=== PATIENT | male | born 1950 | race Caucasian/White ===

== ENCOUNTER 2018-06-19 13:55 | Inpatient (IN) | payer MEDICARE, OTHER ==
[2018-06-19] VITALS (13 sets, daily range): BP systolic 141–199; BP diastolic 61–85
[~2018-06-19] VITALS: Ht 190.5 cm; Wt 80.5 kg
--- NOTE | 2018-06-19 14:11 | PHYS DOC ---
Adult General Chief Complaint Chief Complaint: ABDOMINAL PAIN HPI HPI 67-year-old male presenting the emergency department today with abdominal pain started about 30 minutes ago. He has a history of an aortic surgery years ago and a history of a hernia in the past. He denies any vomiting fevers or chills. It was a sudden pain that was nonradiating intermittent and without alleviating factors. The pain is severe. Medical history: Hypertension and COPD Surgical history as above Social history: Smokes, drinks occasionally, denies IV drug use Review of systems is negative for chest pain shortness of breath headache fevers chills neck pain. He denies hematuria or hematochezia or melena. All other review of systems is negative. ED course: 67-year-old male presenting with severe abdominal pain. He was found to have a closed loop obstruction with possible pneumatosis. Patient is given IV fluids and pain medications on arrival. CT angiogram performed along with blood work. Blood work shows leukocytosis. Lactic acid within normal limits. Creatinine within normal limits. I had Dr. Rivera our general surgeon paged as soon as the radiologist discussed the findings with me at 3:[address] Rivera called back at approximately 410. He will take the patient to the operating room. Patient was given IV fluids here in the emergency room. He is nothing by mouth at this time. I initiated IV antibiotics broad-spectrum. Dr. Rivera evaluated the patient and the patient is going to go to the operating room at this time. I have obtained a bed for the patient through Dr. Dallas who accepts the patient for admission. Basic bridge orders placed. Current Medications Current Medications Current Medications Medications (Trade) Dose Ordered Sig/Vidhya Start Time Stop Time Status Last Admin Dose Admin Hydromorphone HCl (Dilaudid) 0.5 mg PRN Q1HR PRN 06/19/18 14:15 06/19/18 16:42 DC 06/19/18 16:42 0.5 MG Iohexol (Omnipaque 350 Mg/ml) 90 ml 1X ONCE 06/19/18 15:00 06/19/18 15:01 DC 06/19/18 14:51 90 ML Ondansetron HCl (Zofran) 4 mg 1X ONCE 06/19/18 14:15 06/19/18 14:33 DC 06/19/18 15:55 4 MG Sodium Chloride 1,000 ml @ 1,000 mls/hr Q1H 06/19/18 14:13 06/19/18 15:12 DC 06/19/18 15:48 1,000 MLS/HR Allergies Allergies Physical Exam Physical Exam Constitutional: Well developed, well nourished, no acute distress, non-toxic appearance. HENT: Normocephalic, atraumatic, bilateral external ears normal, oropharynx moist, no oral exudates, nose normal. [] Eyes: PERRLA, EOMI, conjunctiva normal, no discharge. Neck: Normal range of motion, no tenderness, supple, no stridor. [] Cardiovascular:Heart rate regular rhythm, no murmur Lungs & Thorax: Bilateral breath sounds clear to auscultation [] Abdomen: Bowel sounds normal, soft, tender to palpation with guarding without rebound tenderness., no masses, no pulsatile masses. Skin: Warm, dry, no erythema, no rash. [] Back: No tenderness, no CVA tenderness. [] Extremities: No tenderness, no cyanosis, no clubbing, ROM intact, no edema. [] Neurologic: Alert and oriented X 3, normal motor function, normal sensory function, no focal deficits noted. [] Psychologic: Affect normal, judgement normal, mood normal. [] Current Patient Data Vital Signs Vital Signs Date Time Temp Pulse Resp B/P (MAP) Pulse Ox O2 Delivery O2 Flow Rate FiO2 06/19/18 14:23 Room Air 06/19/18 14:10 97.5 45 17 191/74 (113) 94 97.5 Lab Values Laboratory Tests Test 06/19/18 13:50 06/19/18 13:51 06/19/18 14:27 White Blood Count 13.3 x10^3/uL (4.0-11.0) H Red Blood Count 4.72 x10^6/uL (4.30-5.70) Hemoglobin 14.4 g/dL (13.0-17.5) Hematocrit 43.7 % (39.0-53.0) Mean Corpuscular Volume 93 fL (79-100) Mean Corpuscular Hemoglobin 30 pg (25-35) Mean Corpuscular Hemoglobin Concent 33 g/dL (31-37) Red Cell Distribution Width 14.7 % (11.5-14.5) H Platelet Count 285 x10^3/uL (140-400) Neutrophils (%) (Auto) 64 % (31-73) Lymphocytes (%) (Auto) 22 % (24-48) L Monocytes (%) (Auto) 9 % (0-9) Eosinophils (%) (Auto) 5 % (0-3) H Basophils (%) (Auto) 1 % (0-3) Neutrophils # (Auto) 8.6 x10^3uL (1.8-7.7) H Lymphocytes # (Auto) 2.9 x10^3/uL (1.0-4.8) Monocytes # (Auto) 1.1 x10^3/uL (0.0-1.1) Eosinophils # (Auto) 0.6 x10^3/uL (0.0-0.7) Basophils # (Auto) 0.1 x10^3/uL (0.0-0.2) Prothrombin Time 12.8 SEC (11.7-14.0) Prothrombin Time INR 1.0 (0.8-1.1) Sodium Level 142 mmol/L (136-145) Potassium Level 4.0 mmol/L (3.5-5.1) Chloride Level 102 mmol/L (98-107) Carbon Dioxide Level 25 mmol/L (21-32) Anion Gap 15 (6-14) H 16 mmol/L (6-14) H Blood Urea Nitrogen 29 mg/dL (8-26) H Creatinine 0.6 mg/dL (0.7-1.3) L Estimated GFR (Cockcroft-Gault) 134.4 Glucose Level 108 mg/dL (70-99) H 111 mg/dL (70-99) H Calcium Level 9.1 mg/dL (8.5-10.1) Total Bilirubin 0.5 mg/dL (0.2-1.0) Direct Bilirubin 0.1 mg/dL (0.0-0.2) Aspartate Amino Transferase (AST) 18 U/L (15-37) Alanine Aminotransferase (ALT) 21 U/L (16-63) Alkaline Phosphatase 76 U/L (46-116) Total Protein 7.3 g/dL (6.4-8.2) Albumin 3.6 g/dL (3.4-5.0) Lipase 54 U/L (73-393) L Lactic Acid Level 1.8 mmol/L (0.4-2.0) POC Hemoglobin 14.3 g/dL (14-18) POC Hematocrit 42 % (37-52) POC Sodium 142 mmol/L (135-145) POC Potassium 3.5 mmol/L (3.5-5.0) POC Chloride 105 mmol/L (98-110) POC Total CO2 25 mmol/L (23-32) POC Blood Urea Nitrogen 27 mg/dL (8-26) H POC Creatinine 0.5 mg/dL (0.5-1.4) POC Ionized Calcium (Elizabeth) 1.12 mmol/L (1.13-1.32) L Laboratory Tests 06/19/18 13:50 Laboratory Tests 06/19/18 13:50 06/19/18 14:27 EKG EKG [] Radiology/Procedures Radiology/Procedures [] Course & Med Decision Making Course & Med Decision Making Pertinent Labs and Imaging studies reviewed. (See chart for details) [] Dragon Disclaimer Dragon Disclaimer This electronic medical record was generated, in whole or in part, using a voice recognition dictation system. Departure Departure Impression: Primary Impression: Bowel obstruction Additional Impression: Abdominal pain Disposition: ADMITTED INPATIENT Condition: STABLE Critical Care Time Critical care time spent was 35 minutes exclusive of procedures. Time was spent evaluating the patient, ordering the administration of medications, reevaluating the patient, discussing with the admitting provider and documenting. Problem Qualifiers TORSTEN COOK MD Jun 19, 2018 14:11
[2018-06-19] MEDS ORDERED: IV NORMAL SALINE 1000ML BAG 1,000 ML IV SCH ×2 (14:13→15:44)
[2018-06-19] MEDS ORDERED: ONDANSETRON PF 4 MG/2 ML VIAL. IV ONE (14:15)
[2018-06-19] MEDS: HYDROmorphone 2 MG/ML VIAL IV/SQ PRN ×3 (14:23→16:42)
[2018-06-19 14:33] LABS: CREATININE ISTAT 0.5 mg/dL (0.5-1.4); HEMOGLOBIN ISTAT 14.3 g/dL (14-18); ION CA ISTAT 1.12 mmol/L (1.13-1.32); POTASSIUM ISTAT 3.5 mmol/L (3.5-5.0)
[2018-06-19 14:42] LABS: BASO # 0.1 x10^3/uL (0.0-0.2); BASO % 1 % (0-3); CALCIUM 9.1 mg/dL (8.5-10.1); CREATININE 0.6 mg/dL (0.7-1.3); EOS # 0.6 x10^3/uL (0.0-0.7); EOS % 5 % (0-3); GFR 134.4; HEMATOCRIT 43.7 % (39.0-53.0); HEMOGLOBIN 14.4 g/dL (13.0-17.5); LYMPH # 2.9 x10^3/uL (1.0-4.8); LYMPH % 22 % (24-48); MEAN CORPUSCULAR HEMOGLOBIN 30 pg (25-35); MEAN CORPUSCULAR HGB CONC 33 g/dL (31-37); MEAN CORPUSCULAR VOLUME 93 fL (79-100); MONO # 1.1 x10^3/uL (0.0-1.1); MONO % 9 % (0-9); NEUT # 8.6 x10^3uL (1.8-7.7); NEUT % 64 % (31-73); PLATELET COUNT 285 x10^3/uL (140-400); RED BLOOD COUNT 4.72 x10^6/uL (4.30-5.70); RED CELL DISTRIBUTION WIDTH 14.7 % (11.5-14.5); WHITE BLOOD COUNT 13.3 x10^3/uL (4.0-11.0)
[2018-06-19] MEDS ORDERED: IOHEXOL 350 MG/ML 100 ML VIAL. IV ONE (15:00)
[2018-06-19 15:07] LABS: ALBUMIN 3.6 g/dL (3.4-5.0); DIRECT BILIRUBIN 0.1 mg/dL (0.0-0.2); TOTAL BILIRUBIN 0.5 mg/dL (0.2-1.0); TOTAL PROTEIN 7.3 g/dL (6.4-8.2)
[2018-06-19] MEDS ORDERED: ONDANSETRON PF 4 MG/2 ML VIAL. IV PRN ×4 (15:45→19:45)
[2018-06-19] MEDS ORDERED: MORPHINE SULFATE 2 MG/ML VIAL. IV PRN ×2 (15:45→16:30)
--- NOTE | 2018-06-19 15:56 | RAD ---
Examination: CT ANGIO CHEST ABD PELVIS History: severe abd pain; Omni 350, 90ml; eval aorta Comparison/Correlation: None Findings: Axial images of chest, abdomen, and pelvis were obtained following IV contrast according to arteriography protocol. MIP images provided. Sagittal and coronal reformatted images provided. Bronchial wall thickening of the lower lobes evident. This is likely related to chronic bronchitis. Opacification of the left lower lobe branch is noted best seen on axial image 71 which may represent retained mucus. Linear atelectasis at the costophrenic sulci evident. Right lower lobe pulmonary nodule which abuts the pleura best seen on axial image 70. No calcification. This nodule measures up to 0.6 cm diameter. Centrilobular emphysema is noted diffusely. Calcified granuloma involves the left lower lung crump. Atheromatous calcific involvement of the thoracic aorta is unremarkable. 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 Thrombus noted involving the proximal left subclavian artery. Small saccular aneurysm is present at the left side of the aortic arch inferiorly and this is best seen on axial image 40 and coronal image 41. Thrombosis is partially seen. This aneurysm measures up to 0.9 cm diameter. There is fusiform distal thoracic aortic aneurysm measuring up to 3.6 cm diameter. Liver, spleen, pancreas, and kidneys are unremarkable on arterial phase images provided. Right lower pole renal cyst is suggested but too small to characterize. Gallbladder fossa is unremarkable. Diverticulosis of the colon is present. No extraluminal gas. Nodular appearance of the adrenal glands suggestive of adenomatous involvement is noted greater on the left. Early bifurcation right renal main renal artery is noted. Calcific involvement of the proximal left main renal artery noted. Distal abdominal aortic bypass graft is present. Occlusion of mus[place]ogee right common iliac artery proximally noted with recanalization distally. 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 Occlusion of the proximal left common iliac artery also noted with recanalization distally. 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 Distended pelvic small bowel loop is present with surrounding inflammation. Pneumatosis is questioned on multiple images. There is no significant bowel wall thickening. No significant distention of small bowel otherwise is seen. Diverticulosis of the colon is present. No inflammatory change about the cecum. Appendix is unremarkable. Bilateral inguinal hernias are present containing omental fat and nonobstructed small bowel loops. Trace pelvic free fluid noted. Significant disc space narrowing from L3 to S1 noted. Impression: Distended pelvic small bowel loops with surrounding inflammation. Early pneumatosis is questioned. Findings of concern for closed loop obstruction. Discussed with Dr. Raymundo 06/19/2018 at 3:49 PM. Diverticulosis. Right lower lobe pulmonary nodule. This measures 0.6 cm diameter. Correlate with risk factors in determining interval follow-up. Chronic bronchitis. Opacification of a left lower lobe bronchus which may represent mucous plugging noted. Consider short-term interval follow-up CT in 12-16 weeks to assess for change. Emphysema. Aortic arch saccular aneurysm. Distal thoracic aortic aneurysm. 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 Consider CTA of the lower extremities for more complete assessment of lower extreme a peripheral vascular disease. PQRS Compliance Statement: One or more of the following individualized dose reduction techniques were utilized for this examination: 1. Automated exposure control 2. Adjustment of the mA and/or kV according to patient size 3. Use of iterative reconstruction technique Electronically signed by: Samy Hong MD (06/19/2018 3:53 PM) [facility] [place]
[2018-06-19] MEDS ORDERED: PIP/TAZO PER PHARMACY MC PRN (16:00)
--- NOTE | 2018-06-19 16:13 | PDOC1 ---
History and Physical Date of Admission Date of Admission DATE: 06/19/18 TIME: 16:06 Identification/Chief Complaint Chief Complaint severe lower abdominal pain today Source Source: Caregiver, Chart review, Patient History of Present Illness History of Present Illness He is crying in pain hence limited history Triage note as follows: * PT PRESENTS TO ED VIA EMS FOR LOWER ABD PAIN THAT STARTED LESS THAN AN HR AGO. PT REPORTS PAIN CRAMPING,INTERMINTENT. PAIN 10/10 He mentions blood pressure medications. He has a mid abdominal scar and mentions aortic repair in another institution. Looking at lungs on CT, he appears to be a smoker The rest of the history is scant.He is tachycardic, blood pressure 190s with elevated anion gap 16 creatinine normal 0.5. Leukocytosis 13.3. CT abdomen: Distended pelvic small bowel loops with surrounding inflammation. Early pneumatosis is questioned. 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 Past Medical History Cardiovascular: HTN Past Surgical History Past Surgical History: Other (aortic repair) Family History Family History: Family History Unknown Social History Smoke: <1 pack per day ALCOHOL: none Drugs: None Current Medications Current Medications Current Medications Hydromorphone HCl (Dilaudid) 0.5 mg PRN Q1HR PRN IV/SQ PAIN GREATER THAN 3/10 Last administered on 06/19/18at 15:59; Start 06/19/18 at 14:15; Stop 06/20/18 at 14:14 Sodium Chloride 1,000 ml @ 1,000 mls/hr Q1H IV Last administered on 06/19/18at 15:48; Start 06/19/18 at 14:13; Stop 06/19/18 at 15:12; Status DC Ondansetron HCl (Zofran) 4 mg 1X ONCE IV Last administered on 06/19/18at 15:55 ; Start 06/19/18 at 14:15; Stop 06/19/18 at 14:33; Status DC Iohexol (Omnipaque 350 Mg/ml) 90 ml 1X ONCE IV Last administered on 06/19/18at 14:51; Start 06/19/18 at 15:00; Stop 06/19/18 at 15:01; Status DC Ondansetron HCl (Zofran) 4 mg PRN Q8HRS PRN IV NAUSEA/VOMITING; Start 06/19/18 at 15:45; Stop 06/19/18 at 15:49; Status DC Morphine Sulfate (Morphine Sulfate) 2 mg PRN Q2HR PRN IV PAIN; Start 06/19/18 at 15:45; Stop 06/20/18 at 15:44 Sodium Chloride 1,000 ml @ 125 mls/hr Q8H IV ; Start 06/19/18 at 15:44; Stop at 19:43 Piperacillin Sod/ Tazobactam Sod (Zosyn Per Pharmacy) 1 each PRN DAILY PRN MC SEE COMMENTS; Start 06/19/18 at 16:00; Status UNV Ondansetron HCl (Zofran) 4 mg PRN Q6HRS PRN IV NAUSEA/VOMITING; Start 06/19/18 at 16:00 Labetalol HCl (Normodyne Iv Push) 20 mg PRN Q2HR PRN IVP HYPERTENSION, SEE COMMENTS; Start 06/19/18 at 16:00 Famotidine (Pepcid Vial) 20 mg BID IVP ; Start 06/19/18 at 21:00 Piperacillin Sod/ Tazobactam Sod 3.375 gm/Sodium Chloride 50 ml @ 100 mls/hr 1X ONCE IV ; Start 06/19/18 at 16:15; Stop 06/19/18 at 16:44 Allergies Allergies: Coded Allergies: No Known Drug Allergies (Unverified , 06/19/18) ROS Review of System limited. he is crying in pain Physical Exam General: Other (in severe pain, crying. restless) HEENT: Atraumatic Lungs: Clear to auscultation Heart: S1S2, RRR, no thrills, no rubs, no gallops, no murmurs, other (sinus tachy) Abdomen: Soft, Other (tender lower abd/guarding possible acute abd?) Extremities: No clubbing, No cyanosis, No edema, No tenderness/swelling, Other (diminished pulses, poor foot hygiene) Skin: No significant lesion Vitals Vitals Vital Signs Date Time Temp Pulse Resp B/P (MAP) Pulse Ox O2 Delivery O2 Flow Rate FiO2 06/19/18 15:59 27 97 Room Air 06/19/18 14:10 97.5 45 191/74 (113) 97.5 Labs Labs Laboratory Tests Test 06/19/18 13:50 06/19/18 13:51 4/12/19 14:27 White Blood Count 13.3 x10^3/uL (4.0-11.0) Red Blood Count 4.72 x10^6/uL (4.30-5.70) Hemoglobin 14.4 g/dL (13.0-17.5) Hematocrit 43.7 % (39.0-53.0) Mean Corpuscular Volume 93 fL (79-100) Mean Corpuscular Hemoglobin 30 pg (25-35) Mean Corpuscular Hemoglobin Concent 33 g/dL (31-37) Red Cell Distribution Width 14.7 % (11.5-14.5) Platelet Count 285 x10^3/uL (140-400) Neutrophils (%) (Auto) 64 % (31-73) Lymphocytes (%) (Auto) 22 % (24-48) Monocytes (%) (Auto) 9 % (0-9) Eosinophils (%) (Auto) 5 % (0-3) Basophils (%) (Auto) 1 % (0-3) Neutrophils # (Auto) 8.6 x10^3uL (1.8-7.7) Lymphocytes # (Auto) 2.9 x10^3/uL (1.0-4.8) Monocytes # (Auto) 1.1 x10^3/uL (0.0-1.1) Eosinophils # (Auto) 0.6 x10^3/uL (0.0-0.7) Basophils # (Auto) 0.1 x10^3/uL (0.0-0.2) Sodium Level 142 mmol/L (136-145) Potassium Level 4.0 mmol/L (3.5-5.1) Chloride Level 102 mmol/L (98-107) Carbon Dioxide Level 25 mmol/L (21-32) Anion Gap 15 (6-14) 16 mmol/L (6-14) Blood Urea Nitrogen 29 mg/dL (8-26) Creatinine 0.6 mg/dL (0.7-1.3) Estimated GFR (Cockcroft-Gault) 134.4 Glucose Level 108 mg/dL (70-99) 111 mg/dL (70-99) Calcium Level 9.1 mg/dL (8.5-10.1) Total Bilirubin 0.5 mg/dL (0.2-1.0) Direct Bilirubin 0.1 mg/dL (0.0-0.2) Aspartate Amino Transf (AST/SGOT) 18 U/L (15-37) Alanine Aminotransferase (ALT/SGPT) 21 U/L (16-63) Alkaline Phosphatase 76 U/L (46-116) Total Protein 7.3 g/dL (6.4-8.2) Albumin 3.6 g/dL (3.4-5.0) Lipase 54 U/L (73-393) Lactic Acid Level 1.8 mmol/L (0.4-2.0) Bedside Hemoglobin 14.3 g/dL (14-18) Bedside Hematocrit 42 % (37-52) Bedside Sodium 142 mmol/L (135-145) Bedside Potassium 3.5 mmol/L (3.5-5.0) Bedside Chloride 105 mmol/L (98-110) Bedside Total CO2 25 mmol/L (23-32) Bedside Blood Urea Nitrogen 27 mg/dL (8-26) Bedside Creatinine 0.5 mg/dL (0.5-1.4) Bedside Ionized Calcium (Elizabeth) 1.12 mmol/L (1.13-1.32) Laboratory Tests Test 06/19/18 13:50 06/19/18 13:51 06/19/18 14:27 White Blood Count 13.3 x10^3/uL (4.0-11.0) Red Blood Count 4.72 x10^6/uL (4.30-5.70) Hemoglobin 14.4 g/dL (13.0-17.5) Hematocrit 43.7 % (39.0-53.0) Mean Corpuscular Volume 93 fL (79-100) Mean Corpuscular Hemoglobin 30 pg (25-35) Mean Corpuscular Hemoglobin Concent 33 g/dL (31-37) Red Cell Distribution Width 14.7 % (11.5-14.5) Platelet Count 285 x10^3/uL (140-400) Neutrophils (%) (Auto) 64 % (31-73) Lymphocytes (%) (Auto) 22 % (24-48) Monocytes (%) (Auto) 9 % (0-9) Eosinophils (%) (Auto) 5 % (0-3) Basophils (%) (Auto) 1 % (0-3) Neutrophils # (Auto) 8.6 x10^3uL (1.8-7.7) Lymphocytes # (Auto) 2.9 x10^3/uL (1.0-4.8) Monocytes # (Auto) 1.1 x10^3/uL (0.0-1.1) Eosinophils # (Auto) 0.6 x10^3/uL (0.0-0.7) Basophils # (Auto) 0.1 x10^3/uL (0.0-0.2) Sodium Level 142 mmol/L (136-145) Potassium Level 4.0 mmol/L (3.5-5.1) Chloride Level 102 mmol/L (98-107) Carbon Dioxide Level 25 mmol/L (21-32) Anion Gap 15 (6-14) 16 mmol/L (6-14) Blood Urea Nitrogen 29 mg/dL (8-26) Creatinine 0.6 mg/dL (0.7-1.3) Estimated GFR (Cockcroft-Gault) 134.4 Glucose Level 108 mg/dL (70-99) 111 mg/dL (70-99) Calcium Level 9.1 mg/dL (8.5-10.1) Total Bilirubin 0.5 mg/dL (0.2-1.0) Direct Bilirubin 0.1 mg/dL (0.0-0.2) Aspartate Amino Transf (AST/SGOT) 18 U/L (15-37) Alanine Aminotransferase (ALT/SGPT) 21 U/L (16-63) Alkaline Phosphatase 76 U/L (46-116) Total Protein 7.3 g/dL (6.4-8.2) Albumin 3.6 g/dL (3.4-5.0) Lipase 54 U/L (73-393) Lactic Acid Level 1.8 mmol/L (0.4-2.0) Bedside Hemoglobin 14.3 g/dL (14-18) Bedside Hematocrit 42 % (37-52) Bedside Sodium 142 mmol/L (135-145) Bedside Potassium 3.5 mmol/L (3.5-5.0) Bedside Chloride 105 mmol/L (98-110) Bedside Total CO2 25 mmol/L (23-32) Bedside Blood Urea Nitrogen 27 mg/dL (8-26) Bedside Creatinine 0.5 mg/dL (0.5-1.4) Bedside Ionized Calcium (Elizabeth) 1.12 mmol/L (1.13-1.32) VTE Prophylaxis Ordered VTE Prophylaxis Devices: Yes VTE Pharmacological Prophylaxi: Yes Assessment/Plan Assessment/Plan Acute abdomen/early pneumotosis? concern for closed loop obstruction. 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
[2018-06-19] MEDS ORDERED: PIPERACILLIN/TAZOBACTAM 3.375 GM in IV NORMAL SALINE 50ML 50 ML IV ONE (16:15)
[2018-06-19] MEDS ORDERED: IV RINGERS,LACTATED 1000ML 1,000 ML IV SCH (16:27)
[2018-06-19] MEDS ORDERED: PROCHLORPERAZINE 10 MG/2 ML VIAL. IV PRN (16:30)
[2018-06-19] MEDS ORDERED: HYDROmorphone 2 MG/ML VIAL IV PRN (16:30)
[2018-06-19] MEDS ORDERED: fentaNYL PF VIAL 100 MCG/2 ML VIAL IV PRN ×2 (16:30)
[2018-06-19] MEDS ORDERED: ROCURONIUM 50 MG/5 ML VIAL. ONE (16:33)
[2018-06-19] MEDS ORDERED: fentaNYL PF VIAL 250 MCG/5 ML VIAL ONE (16:33)
[2018-06-19] MEDS ORDERED: LIDOCAINE 2% PF 5 ML VIAL. ONE (16:34)
[2018-06-19] MEDS ORDERED: ONDANSETRON PF 4 MG/2 ML VIAL. ONE (16:34)
[2018-06-19] MEDS ORDERED: PROPOFOL 20 ML IV ONE (16:34)
[2018-06-19] MEDS ORDERED: DEXAMETHASONE SOD PHOS 20 MG/5 ML VIAL. ONE (16:34)
[2018-06-19 16:43] LABS: PROTHROMBIN TIME PATIENT 12.8 SEC (11.7-14.0)
[2018-06-19] MEDS ORDERED: MORPHINE SULFATE 4 MG/ML VIAL. ONE (17:10)
[2018-06-19] MEDS ORDERED: MORPHINE SULFATE 4 MG/ML VIAL. IV PRN (17:15)
[2018-06-19] MEDS ORDERED: SUCCINYLCHOLINE 200 MG/10 ML VIAL. ONE (17:35)
[2018-06-19] MEDS ORDERED: GLYCOPYRROLATE 1 MG/5 ML VIAL. ONE (18:36)
[2018-06-19] MEDS ORDERED: ePHEDrine PF IN SALINE 50 MG/10 ML SYRINGE. IV ONE (19:05)
[2018-06-19] MEDS ORDERED: NEOSTIGMINE METHYLSULFATE 5 MG/5 ML SYRINGE. ONE (19:13)
[2018-06-19] MEDS ORDERED: 0.9 % SODIUM CHLORIDE 10 ML DISP.SYRIN. IV PRN (19:45)
[2018-06-19] MEDS ORDERED: PHENOL ORAL SPRAY 177ML BOTTLE. PO PRN (19:45)
--- NOTE | 2018-06-19 19:51 | PDOC ---
BRIEF OPERATIVE NOTE Date: Jun 19, 2018 Pre-Op Diagnosis small bowel obstruction Post-Op Diagnosis same with ischemic small bowel Procedure Performed exploratory laparotomy small bowel resection with primary anastomosis appendectomy primary repair bilateral inguinal hernias Surgeon Miguel [employer] Rep[employer]r Veronica MERIDA Anesthesia Type: General Blood Loss 50cc IV Fluid 1600cc Urine Output 500cc Specimens Obtained small bowel appendix Findings ischemic small bowel 2/2 closed loop obstruction from an adhesion Complications none SULMA DOWNEY MD Jun 19, 2018 19:51
[2018-06-19] MEDS: LABETALOL 20 MG/4 ML DISP.SYRIN. IVP PRN (20:00)
[2018-06-19] MEDS: FAMOTIDINE 20 MG/2 ML VIAL IVP SCH (20:16)
[2018-06-19] MEDS: POTASSIUM CL 20MEQ-0.45% NACL 1,000 ML IV SCH (20:17)
[2018-06-19] MEDS: HYDROmorphone 12mg/30ml PCA 30 ML IV PRN (20:39)
[2018-06-19] MEDS ORDERED: hydrALAZINE 20 MG/ML VIAL. IVP PRN (21:15)
[2018-06-19] MEDS: PIPERACILLIN/TAZOBACTAM 3.375 GM in IV NORMAL SALINE 50ML 50 ML IV SCH (23:55)
[2018-06-20] VITALS (14 sets, daily range): BP systolic 118–150; BP diastolic 52–67
[2018-06-20 04:58] LABS: BASO % 0 % (0-3); EOS % 0 % (0-3); HEMATOCRIT 42.2 % (39.0-53.0); HEMOGLOBIN 13.9 g/dL (13.0-17.5); LYMPH # 0.4 x10^3/uL (1.0-4.8); LYMPH % 2 % (24-48); MEAN CORPUSCULAR HEMOGLOBIN 31 pg (25-35); MEAN CORPUSCULAR HGB CONC 33 g/dL (31-37); MEAN CORPUSCULAR VOLUME 93 fL (79-100); MONO # 0.6 x10^3/uL (0.0-1.1); MONO % 3 % (0-9); NEUT # 18.4 x10^3uL (1.8-7.7); NEUT % 95 % (31-73); PLATELET COUNT 224 x10^3/uL (140-400); RED BLOOD COUNT 4.56 x10^6/uL (4.30-5.70); RED CELL DISTRIBUTION WIDTH 14.8 % (11.5-14.5); WHITE BLOOD COUNT 19.4 x10^3/uL (4.0-11.0)
[2018-06-20 05:38] LABS: CALCIUM 8.5 mg/dL (8.5-10.1); CREATININE 0.5 mg/dL (0.7-1.3); GFR 165.9; POTASSIUM 4.3 mmol/L (3.5-5.1)
[2018-06-20] MEDS: PIPERACILLIN/TAZOBACTAM 3.375 GM in IV NORMAL SALINE 50ML 50 ML IV SCH ×3 (05:45→17:37)
[2018-06-20] MEDS ORDERED: AMLO10TA8 PO (06:11)
[2018-06-20] MEDS ORDERED: ATORVASTATIN CA80 MG PO (06:11)
[2018-06-20] MEDS ORDERED: TRIA1CAP3 PO (06:11)
--- NOTE | 2018-06-20 06:49 | PDOC2 ---
CONSULT Date of Consult Date of Consult DATE: 06/19/18 TIME: 16:45 Reason for Consult Reason for Consult: SBO Referring Physician Referring Physician: JEZ Identification/Chief Complaint Chief Complaint abdominal pain Source Source: Chart review, Patient History of Present Illness Reason for Visit: Mr Garcia is a 67 yo vasculopath with severe lower abdominal pain and a CT showing large bilateral inguinal hernias and concern for a closed loop obstruction of the small bowel in the pelvis Past Medical History Cardiovascular: HTN Past Surgical History Past Surgical History: Other (aortic repair) Family History Family History: Family History Unknown Social History <1 pack per day ALCOHOL: none Drugs: None Current Problem List Problem List Problems Medical Problems: (1) Abdominal pain Status: Acute (2) Bowel obstruction Status: Acute Current Medications Current Medications Current Medications Hydromorphone HCl (Dilaudid) 0.5 mg PRN Q1HR PRN IV/SQ PAIN GREATER THAN 3/10 Last administered on 06/19/18at 16:42; Start 06/19/18 at 14:15; Stop 06/19/18 at 16:42; Status DC Sodium Chloride 1,000 ml @ 1,000 mls/hr Q1H IV Last administered on 06/19/18at 15:48; Start 06/19/18 at 14:13; Stop 06/19/18 at 15:12; Status DC Ondansetron HCl (Zofran) 4 mg 1X ONCE IV Last administered on 06/19/18at 15:55 ; Start 06/19/18 at 14:15; Stop 06/19/18 at 14:33; Status DC Iohexol (Omnipaque 350 Mg/ml) 90 ml 1X ONCE IV Last administered on 06/19/18at 14:51; Start 06/19/18 at 15:00; Stop 06/19/18 at 15:01; Status DC Ondansetron HCl (Zofran) 4 mg PRN Q8HRS PRN IV NAUSEA/VOMITING; Start 06/19/18 at 15:45; Stop 06/19/18 at 15:49; Status DC Morphine Sulfate (Morphine Sulfate) 2 mg PRN Q2HR PRN IV PAIN Last administered on 06/19/18at 16:22; Start 06/19/18 at 15:45; Stop 06/20/18 at 15:44 Sodium Chloride 1,000 ml @ 125 mls/hr Q8H IV ; Start 06/19/18 at 15:44; Stop at 19:43; Status DC Piperacillin Sod/ Tazobactam Sod (Zosyn Per Pharmacy) 1 each PRN DAILY PRN MC SEE COMMENTS; Start 06/19/18 at 16:00 Ondansetron HCl (Zofran) 4 mg PRN Q6HRS PRN IV NAUSEA/VOMITING; Start 06/19/18 at 16:00 Labetalol HCl (Normodyne Iv Push) 20 mg PRN Q2HR PRN IVP HYPERTENSION, SEE COMMENTS Last administered on 06/19/18at 20:00; Start 06/19/18 at 16:00 Famotidine (Pepcid Vial) 20 mg BID IVP Last administered on 06/19/18at 20:16; Start 06/19/18 at 21:00 Piperacillin Sod/ Tazobactam Sod 3.375 gm/Sodium Chloride 50 ml @ 100 mls/hr 1X ONCE IV Last administered on 06/19/18at 16:28; Start 06/19/18 at 16:15; Stop 06/19/18 at 16:44; Status DC Ondansetron HCl (Zofran) 4 mg PRN Q6HRS PRN IV NAUSEA/VOMITING; Start 06/19/18 at 16:30; Stop 06/20/18 at 16:29 Fentanyl Citrate (Fentanyl 2ml Vial) 25 mcg PRN Q5MIN PRN IV MILD PAIN; Start 06/19/18 at 16:30; Stop 06/19/18 at 22:00; Status DC Fentanyl Citrate (Fentanyl 2ml Vial) 50 mcg PRN Q5MIN PRN IV MODERATE TO SEVERE PAIN Last administered on 06/19/18at 20:07; Start 06/19/18 at 16:30; Stop 06/19/18 at 22:00; Status DC Morphine Sulfate (Morphine Sulfate) 1 mg PRN Q10MIN PRN IV SEVERE PAIN; Start 06/19/18 at 16:30; Stop 06/19/18 at 22:00; Status DC Ringer's Solution 1,000 ml @ 30 mls/hr Q24H IV ; Start 06/19/18 at 16:27; Stop 06/20/18 at 04:26; Status DC Hydromorphone HCl (Dilaudid) 0.5 mg PRN Q10MIN PRN IV SEV PAIN, Second choice; Start 06/19/18 at 16:30; Stop 06/19/18 at 22:00; Status DC Prochlorperazine Edisylate (Compazine) 5 mg PACU PRN PRN IV NAUSEA, MRX1; Start 06/19/18 at 16:30; Stop 06/19/18 at 22:00; Status DC Fentanyl Citrate (Fentanyl 5ml Vial) 250 mcg STK-MED ONCE .ROUTE ; Start at 16:33; Stop 06/19/18 at 16:34; Status DC Rocuronium [place] (Zemuron) 50 mg STK-MED ONCE .ROUTE ; Start 06/19/18 at 16:33 ; Stop 06/19/18 at 16:34; Status DC Propofol 20 ml @ As Directed STK-MED ONCE IV ; Start 06/19/18 at 16:34; Stop 02/25 at 16:35; Status DC Lidocaine HCl (Lidocaine Pf 2% Vial) 5 ml STK-MED ONCE .ROUTE ; Start 06/19/18 at 16:34; Stop 06/19/18 at 16:35; Status DC Ondansetron HCl (Zofran) 4 mg STK-MED ONCE .ROUTE ; Start 06/19/18 at 16:34; Stop 06/19/18 at 16:35; Status DC Dexamethasone Sodium Phosphate (Decadron) 20 mg STK-MED ONCE .ROUTE ; Start 02/25 at 16:34; Stop 06/19/18 at 16:35; Status DC Piperacillin Sod/ Tazobactam Sod 3.375 gm/Sodium Chloride 50 ml @ 100 mls/hr Q6HRS IV Last administered on 06/20/18at 05:45; Start 06/19/18 at 23:00 Morphine Sulfate (Morphine Sulfate) 4 mg STK-MED ONCE .ROUTE ; Start 06/19/18 at 17:10; Stop 06/19/18 at 17:11; Status DC Morphine Sulfate (Morphine Sulfate) 4 mg PRN Q10MIN PRN IV PAIN Last administered on 06/19/18at 17:23; Start 06/19/18 at 17:15 Succinylcholine Chloride (Anectine) 200 mg STK-MED ONCE .ROUTE ; Start 06/19/18 at 17:35; Stop 06/19/18 at 17:36; Status DC Glycopyrrolate (Robinul) 1 mg STK-MED ONCE .ROUTE ; Start 06/19/18 at 18:36; Stop 06/19/18 at 18:37; Status DC Ephedrine Sulfate (ePHEDrine PF IN SALINE SYRINGE) 50 mg STK-MED ONCE IV ; Start 06/19/18 at 19:05; Stop 06/19/18 at 19:06; Status DC Neostigmine Methylsulfate (Neostigmine Methylsulfate) 5 mg STK-MED ONCE .ROUTE ; Start 06/19/18 at 19:13; Stop 06/19/18 at 19:14; Status DC Enoxaparin Sodium (Lovenox 40mg Syringe) 40 mg Q12HR SQ ; Start 06/20/18 at 09: 00 Sodium Chloride (Normal Saline Flush) 3 ml QSHIFT PRN IV AFTER MEDS AND BLOOD DRAWS; Start 06/19/18 at 19:45 Potassium Chloride/Sodium Chloride 1,000 ml @ 100 mls/hr Q10H IV Last administered on 06/19/18at 20:17; Start 06/19/18 at 19:42 Hydromorphone HCl 30 ml @ 0 mls/hr CONT PRN PRN IV PER PROTOCOL Last administered on 06/19/18at 20:39; Start 06/19/18 at 19:45 Ondansetron HCl (Zofran) 4 mg PRN Q6HRS PRN IV NAUESA, 1ST CHOICE; Start at 19:45 Throat Lozenges (Cepacol Sore Throat Lozenge) 1 aldair PRN Q2HRS PRN PO SORE THROAT, 1ST CHOICE; Start 06/19/18 at 19:45 Throat Lozenges (Chloraseptic) 1 spray PRN Q2HR PRN PO SORE THROAT, 2ND CHOICE ; Start 06/19/18 at 19:45 Hydralazine HCl (Apresoline Inj) 10 mg PRN Q4HRS PRN IVP ELEVATED BP, SEE COMMENTS; Start 06/19/18 at 21:15 Active Scripts Active Reported Triamterene-Hctz 37.5-25 Mg Cp (Triamterene/Hydrochlorothiazid) 1 Each Capsule 1 Cap PO DAILY Atorvastatin Calcium 80 Mg Tablet 1 Tab PO DAILY Amlodipine Besylate 10 Mg Tablet 10 Mg PO DAILY Allergies Allergies: Coded Allergies: lisinopril (Verified Allergy, Severe, Anaphylaxis, 06/20/18) ROS Gastrointestinal: Yes Nausea, Yes Abdominal Pain Physical Exam General: Other (chronically ill appearing gentleman complains of severe abdominal pain) HEENT: Atraumatic Lungs: Normal air movement Heart: Regular rate Abdomen: Other (well healed midline scar, TTP BLQ) Extremities: Other (marked bilateral leg varicocities) Vitals VITALS Vital Signs Date Time Temp Pulse Resp B/P (MAP) Pulse Ox O2 Delivery O2 Flow Rate FiO2 06/20/18 06:00 60 20 135/61 (85) 96 Nasal Cannula 3.0 06/20/18 04:00 98.1 98.1 Labs Labs Laboratory Tests Test 06/19/18 13:50 06/19/18 13:51 06/19/18 14:27 06/20/18 04:00 White Blood Count 13.3 x10^3/uL (4.0-11.0) 19.4 x10^3/uL (4.0-11.0) Red Blood Count 4.72 x10^6/uL (4.30-5.70) 4.56 x10^6/uL (4.30-5.70) Hemoglobin 14.4 g/dL (13.0-17.5) 13.9 g/dL (13.0-17.5) Hematocrit 43.7 % (39.0-53.0) 42.2 % (39.0-53.0) Mean Corpuscular Volume 93 fL (79-100) 93 fL (79-100) Mean Corpuscular Hemoglobin 30 pg (25-35) 31 pg (25-35) Mean Corpuscular Hemoglobin Concent 33 g/dL (31-37) 33 g/dL (31-37) Red Cell Distribution Width 14.7 % (11.5-14.5) 14.8 % (11.5-14.5) Platelet Count 285 x10^3/uL (140-400) 224 x10^3/uL (140-400) Neutrophils (%) (Auto) 64 % (31-73) 95 % (31-73) Lymphocytes (%) (Auto) 22 % (24-48) 2 % (24-48) Monocytes (%) (Auto) 9 % (0-9) 3 % (0-9) Eosinophils (%) (Auto) 5 % (0-3) 0 % (0-3) Basophils (%) (Auto) 1 % (0-3) 0 % (0-3) Neutrophils # (Auto) 8.6 x10^3uL (1.8-7.7) 18.4 x10^3uL (1.8-7.7) Lymphocytes # (Auto) 2.9 x10^3/uL (1.0-4.8) 0.4 x10^3/uL (1.0-4.8) Monocytes # (Auto) 1.1 x10^3/uL (0.0-1.1) 0.6 x10^3/uL (0.0-1.1) Eosinophils # (Auto) 0.6 x10^3/uL (0.0-0.7) 0.0 x10^3/uL (0.0-0.7) Basophils # (Auto) 0.1 x10^3/uL (0.0-0.2) 0.0 x10^3/uL (0.0-0.2) Prothrombin Time 12.8 SEC (11.7-14.0) Prothromb Time International Ratio 1.0 (0.8-1.1) Sodium Level 142 mmol/L (136-145) 139 mmol/L (136-145) Potassium Level 4.0 mmol/L (3.5-5.1) 4.3 mmol/L (3.5-5.1) Chloride Level 102 mmol/L (98-107) 103 mmol/L (98-107) Carbon Dioxide Level 25 mmol/L (21-32) 25 mmol/L (21-32) Anion Gap 15 (6-14) 16 mmol/L (6-14) 11 (6-14) Blood Urea Nitrogen 29 mg/dL (8-26) 25 mg/dL (8-26) Creatinine 0.6 mg/dL (0.7-1.3) 0.5 mg/dL (0.7-1.3) Estimated GFR (Cockcroft-Gault) 134.4 165.9 Glucose Level 108 mg/dL (70-99) 111 mg/dL (70-99) 135 mg/dL (70-99) Calcium Level 9.1 mg/dL (8.5-10.1) 8.5 mg/dL (8.5-10.1) Total Bilirubin 0.5 mg/dL (0.2-1.0) Direct Bilirubin 0.1 mg/dL (0.0-0.2) Aspartate Amino Transf (AST/SGOT) 18 U/L (15-37) Alanine Aminotransferase (ALT/SGPT) 21 U/L (16-63) Alkaline Phosphatase 76 U/L (46-116) Total Protein 7.3 g/dL (6.4-8.2) Albumin 3.6 g/dL (3.4-5.0) Lipase 54 U/L (73-393) Lactic Acid Level 1.8 mmol/L (0.4-2.0) 1.1 mmol/L (0.4-2.0) Bedside Hemoglobin 14.3 g/dL (14-18) Bedside Hematocrit 42 % (37-52) Bedside Sodium 142 mmol/L (135-145) Bedside Potassium 3.5 mmol/L (3.5-5.0) Bedside Chloride 105 mmol/L (98-110) Bedside Total CO2 25 mmol/L (23-32) Bedside Blood Urea Nitrogen 27 mg/dL (8-26) Bedside Creatinine 0.5 mg/dL (0.5-1.4) Bedside Ionized Calcium (Elizabeth) 1.12 mmol/L (1.13-1.32) Laboratory Tests Test 06/19/18 13:50 06/19/18 13:51 06/19/18 14:27 06/20/18 04:00 White Blood Count 13.3 x10^3/uL (4.0-11.0) 19.4 x10^3/uL (4.0-11.0) Red Blood Count 4.72 x10^6/uL (4.30-5.70) 4.56 x10^6/uL (4.30-5.70) Hemoglobin 14.4 g/dL (13.0-17.5) 13.9 g/dL (13.0-17.5) Hematocrit 43.7 % (39.0-53.0) 42.2 % (39.0-53.0) Mean Corpuscular Volume 93 fL (79-100) 93 fL (79-100) Mean Corpuscular Hemoglobin 30 pg (25-35) 31 pg (25-35) Mean Corpuscular Hemoglobin Concent 33 g/dL (31-37) 33 g/dL (31-37) Red Cell Distribution Width 14.7 % (11.5-14.5) 14.8 % (11.5-14.5) Platelet Count 285 x10^3/uL (140-400) 224 x10^3/uL (140-400) Neutrophils (%) (Auto) 64 % (31-73) 95 % (31-73) Lymphocytes (%) (Auto) 22 % (24-48) 2 % (24-48) Monocytes (%) (Auto) 9 % (0-9) 3 % (0-9) Eosinophils (%) (Auto) 5 % (0-3) 0 % (0-3) Basophils (%) (Auto) 1 % (0-3) 0 % (0-3) Neutrophils # (Auto) 8.6 x10^3uL (1.8-7.7) 18.4 x10^3uL (1.8-7.7) Lymphocytes # (Auto) 2.9 x10^3/uL (1.0-4.8) 0.4 x10^3/uL (1.0-4.8) Monocytes # (Auto) 1.1 x10^3/uL (0.0-1.1) 0.6 x10^3/uL (0.0-1.1) Eosinophils # (Auto) 0.6 x10^3/uL (0.0-0.7) 0.0 x10^3/uL (0.0-0.7) Basophils # (Auto) 0.1 x10^3/uL (0.0-0.2) 0.0 x10^3/uL (0.0-0.2) Prothrombin Time 12.8 SEC (11.7-14.0) Prothromb Time International Ratio 1.0 (0.8-1.1) Sodium Level 142 mmol/L (136-145) 139 mmol/L (136-145) Potassium Level 4.0 mmol/L (3.5-5.1) 4.3 mmol/L (3.5-5.1) Chloride Level 102 mmol/L (98-107) 103 mmol/L (98-107) Carbon Dioxide Level 25 mmol/L (21-32) 25 mmol/L (21-32) Anion Gap 15 (6-14) 16 mmol/L (6-14) 11 (6-14) Blood Urea Nitrogen 29 mg/dL (8-26) 25 mg/dL (8-26) Creatinine 0.6 mg/dL (0.7-1.3) 0.5 mg/dL (0.7-1.3) Estimated GFR (Cockcroft-Gault) 134.4 165.9 Glucose Level 108 mg/dL (70-99) 111 mg/dL (70-99) 135 mg/dL (70-99) Calcium Level 9.1 mg/dL (8.5-10.1) 8.5 mg/dL (8.5-10.1) Total Bilirubin 0.5 mg/dL (0.2-1.0) Direct Bilirubin 0.1 mg/dL (0.0-0.2) Aspartate Amino Transf (AST/SGOT) 18 U/L (15-37) Alanine Aminotransferase (ALT/SGPT) 21 U/L (16-63) Alkaline Phosphatase 76 U/L (46-116) Total Protein 7.3 g/dL (6.4-8.2) Albumin 3.6 g/dL (3.4-5.0) Lipase 54 U/L (73-393) Lactic Acid Level 1.8 mmol/L (0.4-2.0) 1.1 mmol/L (0.4-2.0) Bedside Hemoglobin 14.3 g/dL (14-18) Bedside Hematocrit 42 % (37-52) Bedside Sodium 142 mmol/L (135-145) Bedside Potassium 3.5 mmol/L (3.5-5.0) Bedside Chloride 105 mmol/L (98-110) Bedside Total CO2 25 mmol/L (23-32) Bedside Blood Urea Nitrogen 27 mg/dL (8-26) Bedside Creatinine 0.5 mg/dL (0.5-1.4) Bedside Ionized Calcium (Elizabeth) 1.12 mmol/L (1.13-1.32) Images Images CT scan done on admission is reviewed Assessment/Plan Assessment/Plan SBO, possible ischemia vasculopathy explore explained R/B/A he will proceed Thanks for consult SULMA DOWNEY MD Jun 20, 2018 06:49
[2018-06-20] MEDS: BENZOCAINE/MENTHOL LOZENGE. PO PRN ×2 (07:32→08:54)
--- NOTE | 2018-06-20 08:06 | RAD ---
Supine abdomen. HISTORY: Postop KUB in OR, post abdominal surgery Single view was taken of the abdomen. There is a small amount of contrast in the bladder. There is a Schneider catheter in the bladder. There are skin carlos in the midline of the pelvis. There is an NG tube in the stomach. There is moderate stool in the colon. There is no bowel obstruction evident. There is mild scoliosis in the lumbar spine. There is degenerative disc disease in the lumbar spine. No other opaque foreign body is noted. IMPRESSION: 1. NG tube in the stomach. 2. Postop changes. 3. No bowel obstruction or other acute finding. Electronically signed by: Joel Payton MD (06/20/2018 8:03 AM) [facility]
[2018-06-20 08:19] LABS: % BANDS 12 % (0-9); % LYMPHS 2 % (24-48); % MONOS 2 % (0-10); % SEGS 84 % (35-66); PLT ESTIMATE ADEQUATE (ADEQUATE)
[2018-06-20] MEDS: POTASSIUM CL 20MEQ-0.45% NACL 1,000 ML IV SCH ×2 (08:54→15:42)
--- NOTE | 2018-06-20 08:55 | PDOC ---
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 He states he has no pain whatsoever. NGT in place, FIELD INTERVIEWER on, used x6 over 4 hour period. 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 Denies SOB or CP. Plan: Ok to transfer to med surg Could consider d/c of FIELD INTERVIEWER Monitor O2 and CO2 post-op with FIELD INTERVIEWER in place Thromboprophylaxis Vascular surgery to see Vitals Vitals Vital Signs Date Time Temp Pulse Resp B/P (MAP) Pulse Ox O2 Delivery O2 Flow Rate FiO2 06/20/18 06:00 60 20 135/61 (85) 96 Nasal Cannula 3.0 06/20/18 04:00 98.1 98.1 Physical Exam General: Other (chronically ill appearing gentleman complains of severe abdominal pain) Heart: Regular rate Abdomen: Other (well healed midline scar, TTP BLQ) Extremities: Other (marked bilateral leg varicocities) Skin: No significant lesion Labs LABS Laboratory Tests Test 06/19/18 13:50 06/19/18 13:51 06/19/18 14:27 06/20/18 04:00 White Blood Count 13.3 x10^3/uL (4.0-11.0) 19.4 x10^3/uL (4.0-11.0) Red Blood Count 4.72 x10^6/uL (4.30-5.70) 4.56 x10^6/uL (4.30-5.70) Hemoglobin 14.4 g/dL (13.0-17.5) 13.9 g/dL (13.0-17.5) Hematocrit 43.7 % (39.0-53.0) 42.2 % (39.0-53.0) Mean Corpuscular Volume 93 fL (79-100) 93 fL (79-100) Mean Corpuscular Hemoglobin 30 pg (25-35) 31 pg (25-35) Mean Corpuscular Hemoglobin Concent 33 g/dL (31-37) 33 g/dL (31-37) Red Cell Distribution Width 14.7 % (11.5-14.5) 14.8 % (11.5-14.5) Platelet Count 285 x10^3/uL (140-400) 224 x10^3/uL (140-400) Neutrophils (%) (Auto) 64 % (31-73) 95 % (31-73) Lymphocytes (%) (Auto) 22 % (24-48) 2 % (24-48) Monocytes (%) (Auto) 9 % (0-9) 3 % (0-9) Eosinophils (%) (Auto) 5 % (0-3) 0 % (0-3) Basophils (%) (Auto) 1 % (0-3) 0 % (0-3) Neutrophils # (Auto) 8.6 x10^3uL (1.8-7.7) 18.4 x10^3uL (1.8-7.7) Lymphocytes # (Auto) 2.9 x10^3/uL (1.0-4.8) 0.4 x10^3/uL (1.0-4.8) Monocytes # (Auto) 1.1 x10^3/uL (0.0-1.1) 0.6 x10^3/uL (0.0-1.1) Eosinophils # (Auto) 0.6 x10^3/uL (0.0-0.7) 0.0 x10^3/uL (0.0-0.7) Basophils # (Auto) 0.1 x10^3/uL (0.0-0.2) 0.0 x10^3/uL (0.0-0.2) Prothrombin Time 12.8 SEC (11.7-14.0) Prothromb Time International Ratio 1.0 (0.8-1.1) Sodium Level 142 mmol/L (136-145) 139 mmol/L (136-145) Potassium Level 4.0 mmol/L (3.5-5.1) 4.3 mmol/L (3.5-5.1) Chloride Level 102 mmol/L (98-107) 103 mmol/L (98-107) Carbon Dioxide Level 25 mmol/L (21-32) 25 mmol/L (21-32) Anion Gap 15 (6-14) 16 mmol/L (6-14) 11 (6-14) Blood Urea Nitrogen 29 mg/dL (8-26) 25 mg/dL (8-26) Creatinine 0.6 mg/dL (0.7-1.3) 0.5 mg/dL (0.7-1.3) Estimated GFR (Cockcroft-Gault) 134.4 165.9 Glucose Level 108 mg/dL (70-99) 111 mg/dL (70-99) 135 mg/dL (70-99) Calcium Level 9.1 mg/dL (8.5-10.1) 8.5 mg/dL (8.5-10.1) Total Bilirubin 0.5 mg/dL (0.2-1.0) Direct Bilirubin 0.1 mg/dL (0.0-0.2) Aspartate Amino Transf (AST/SGOT) 18 U/L (15-37) Alanine Aminotransferase (ALT/SGPT) 21 U/L (16-63) Alkaline Phosphatase 76 U/L (46-116) Total Protein 7.3 g/dL (6.4-8.2) Albumin 3.6 g/dL (3.4-5.0) Lipase 54 U/L (73-393) Lactic Acid Level 1.8 mmol/L (0.4-2.0) 1.1 mmol/L (0.4-2.0) Bedside Hemoglobin 14.3 g/dL (14-18) Bedside Hematocrit 42 % (37-52) Bedside Sodium 142 mmol/L (135-145) Bedside Potassium 3.5 mmol/L (3.5-5.0) Bedside Chloride 105 mmol/L (98-110) Bedside Total CO2 25 mmol/L (23-32) Bedside Blood Urea Nitrogen 27 mg/dL (8-26) Bedside Creatinine 0.5 mg/dL (0.5-1.4) Bedside Ionized Calcium (Elizabeth) 1.12 mmol/L (1.13-1.32) Segmented Neutrophils % 84 % (35-66) Band Neutrophils % 12 % (0-9) Lymphocytes % 2 % (24-48) Monocytes % 2 % (0-10) Platelet Estimate Adequate (ADEQUATE) Assessment and Plan Assessmemt and Plan Problems Medical Problems: (1) Abdominal pain Status: Acute (2) Bowel obstruction Status: Acute Comment Review of Relevant I have reviewed the following items charles (where applicable) has been applied. Labs Laboratory Tests Test 06/19/18 13:50 06/19/18 13:51 06/19/18 14:27 06/20/18 04:00 White Blood Count 13.3 x10^3/uL (4.0-11.0) 19.4 x10^3/uL (4.0-11.0) Red Blood Count 4.72 x10^6/uL (4.30-5.70) 4.56 x10^6/uL (4.30-5.70) Hemoglobin 14.4 g/dL (13.0-17.5) 13.9 g/dL (13.0-17.5) Hematocrit 43.7 % (39.0-53.0) 42.2 % (39.0-53.0) Mean Corpuscular Volume 93 fL (79-100) 93 fL (79-100) Mean Corpuscular Hemoglobin 30 pg (25-35) 31 pg (25-35) Mean Corpuscular Hemoglobin Concent 33 g/dL (31-37) 33 g/dL (31-37) Red Cell Distribution Width 14.7 % (11.5-14.5) 14.8 % (11.5-14.5) Platelet Count 285 x10^3/uL (140-400) 224 x10^3/uL (140-400) Neutrophils (%) (Auto) 64 % (31-73) 95 % (31-73) Lymphocytes (%) (Auto) 22 % (24-48) 2 % (24-48) Monocytes (%) (Auto) 9 % (0-9) 3 % (0-9) Eosinophils (%) (Auto) 5 % (0-3) 0 % (0-3) Basophils (%) (Auto) 1 % (0-3) 0 % (0-3) Neutrophils # (Auto) 8.6 x10^3uL (1.8-7.7) 18.4 x10^3uL (1.8-7.7) Lymphocytes # (Auto) 2.9 x10^3/uL (1.0-4.8) 0.4 x10^3/uL (1.0-4.8) Monocytes # (Auto) 1.1 x10^3/uL (0.0-1.1) 0.6 x10^3/uL (0.0-1.1) Eosinophils # (Auto) 0.6 x10^3/uL (0.0-0.7) 0.0 x10^3/uL (0.0-0.7) Basophils # (Auto) 0.1 x10^3/uL (0.0-0.2) 0.0 x10^3/uL (0.0-0.2) Prothrombin Time 12.8 SEC (11.7-14.0) Prothromb Time International Ratio 1.0 (0.8-1.1) Sodium Level 142 mmol/L (136-145) 139 mmol/L (136-145) Potassium Level 4.0 mmol/L (3.5-5.1) 4.3 mmol/L (3.5-5.1) Chloride Level 102 mmol/L (98-107) 103 mmol/L (98-107) Carbon Dioxide Level 25 mmol/L (21-32) 25 mmol/L (21-32) Anion Gap 15 (6-14) 16 mmol/L (6-14) 11 (6-14) Blood Urea Nitrogen 29 mg/dL (8-26) 25 mg/dL (8-26) Creatinine 0.6 mg/dL (0.7-1.3) 0.5 mg/dL (0.7-1.3) Estimated GFR (Cockcroft-Gault) 134.4 165.9 Glucose Level 108 mg/dL (70-99) 111 mg/dL (70-99) 135 mg/dL (70-99) Calcium Level 9.1 mg/dL (8.5-10.1) 8.5 mg/dL (8.5-10.1) Total Bilirubin 0.5 mg/dL (0.2-1.0) Direct Bilirubin 0.1 mg/dL (0.0-0.2) Aspartate Amino Transf (AST/SGOT) 18 U/L (15-37) Alanine Aminotransferase (ALT/SGPT) 21 U/L (16-63) Alkaline Phosphatase 76 U/L (46-116) Total Protein 7.3 g/dL (6.4-8.2) Albumin 3.6 g/dL (3.4-5.0) Lipase 54 U/L (73-393) Lactic Acid Level 1.8 mmol/L (0.4-2.0) 1.1 mmol/L (0.4-2.0) Bedside Hemoglobin 14.3 g/dL (14-18) Bedside Hematocrit 42 % (37-52) Bedside Sodium 142 mmol/L (135-145) Bedside Potassium 3.5 mmol/L (3.5-5.0) Bedside Chloride 105 mmol/L (98-110) Bedside Total CO2 25 mmol/L (23-32) Bedside Blood Urea Nitrogen 27 mg/dL (8-26) Bedside Creatinine 0.5 mg/dL (0.5-1.4) Bedside Ionized Calcium (Elizabeth) 1.12 mmol/L (1.13-1.32) Segmented Neutrophils % 84 % (35-66) Band Neutrophils % 12 % (0-9) Lymphocytes % 2 % (24-48) Monocytes % 2 % (0-10) Platelet Estimate Adequate (ADEQUATE) Laboratory Tests Test 06/19/18 13:50 06/19/18 13:51 06/19/18 14:27 06/20/18 04:00 White Blood Count 13.3 x10^3/uL (4.0-11.0) 19.4 x10^3/uL (4.0-11.0) Red Blood Count 4.72 x10^6/uL (4.30-5.70) 4.56 x10^6/uL (4.30-5.70) Hemoglobin 14.4 g/dL (13.0-17.5) 13.9 g/dL (13.0-17.5) Hematocrit 43.7 % (39.0-53.0) 42.2 % (39.0-53.0) Mean Corpuscular Volume 93 fL (79-100) 93 fL (79-100) Mean Corpuscular Hemoglobin 30 pg (25-35) 31 pg (25-35) Mean Corpuscular Hemoglobin Concent 33 g/dL (31-37) 33 g/dL (31-37) Red Cell Distribution Width 14.7 % (11.5-14.5) 14.8 % (11.5-14.5) Platelet Count 285 x10^3/uL (140-400) 224 x10^3/uL (140-400) Neutrophils (%) (Auto) 64 % (31-73) 95 % (31-73) Lymphocytes (%) (Auto) 22 % (24-48) 2 % (24-48) Monocytes (%) (Auto) 9 % (0-9) 3 % (0-9) Eosinophils (%) (Auto) 5 % (0-3) 0 % (0-3) Basophils (%) (Auto) 1 % (0-3) 0 % (0-3) Neutrophils # (Auto) 8.6 x10^3uL (1.8-7.7) 18.4 x10^3uL (1.8-7.7) Lymphocytes # (Auto) 2.9 x10^3/uL (1.0-4.8) 0.4 x10^3/uL (1.0-4.8) Monocytes # (Auto) 1.1 x10^3/uL (0.0-1.1) 0.6 x10^3/uL (0.0-1.1) Eosinophils # (Auto) 0.6 x10^3/uL (0.0-0.7) 0.0 x10^3/uL (0.0-0.7) Basophils # (Auto) 0.1 x10^3/uL (0.0-0.2) 0.0 x10^3/uL (0.0-0.2) Prothrombin Time 12.8 SEC (11.7-14.0) Prothromb Time International Ratio 1.0 (0.8-1.1) Sodium Level 142 mmol/L (136-145) 139 mmol/L (136-145) Potassium Level 4.0 mmol/L (3.5-5.1) 4.3 mmol/L (3.5-5.1) Chloride Level 102 mmol/L (98-107) 103 mmol/L (98-107) Carbon Dioxide Level 25 mmol/L (21-32) 25 mmol/L (21-32) Anion Gap 15 (6-14) 16 mmol/L (6-14) 11 (6-14) Blood Urea Nitrogen 29 mg/dL (8-26) 25 mg/dL (8-26) Creatinine 0.6 mg/dL (0.7-1.3) 0.5 mg/dL (0.7-1.3) Estimated GFR (Cockcroft-Gault) 134.4 165.9 Glucose Level 108 mg/dL (70-99) 111 mg/dL (70-99) 135 mg/dL (70-99) Calcium Level 9.1 mg/dL (8.5-10.1) 8.5 mg/dL (8.5-10.1) Total Bilirubin 0.5 mg/dL (0.2-1.0) Direct Bilirubin 0.1 mg/dL (0.0-0.2) Aspartate Amino Transf (AST/SGOT) 18 U/L (15-37) Alanine Aminotransferase (ALT/SGPT) 21 U/L (16-63) Alkaline Phosphatase 76 U/L (46-116) Total Protein 7.3 g/dL (6.4-8.2) Albumin 3.6 g/dL (3.4-5.0) Lipase 54 U/L (73-393) Lactic Acid Level 1.8 mmol/L (0.4-2.0) 1.1 mmol/L (0.4-2.0) Bedside Hemoglobin 14.3 g/dL (14-18) Bedside Hematocrit 42 % (37-52) Bedside Sodium 142 mmol/L (135-145) Bedside Potassium 3.5 mmol/L (3.5-5.0) Bedside Chloride 105 mmol/L (98-110) Bedside Total CO2 25 mmol/L (23-32) Bedside Blood Urea Nitrogen 27 mg/dL (8-26) Bedside Creatinine 0.5 mg/dL (0.5-1.4) Bedside Ionized Calcium (Elizabeth) 1.12 mmol/L (1.13-1.32) Segmented Neutrophils % 84 % (35-66) Band Neutrophils % 12 % (0-9) Lymphocytes % 2 % (24-48) Monocytes % 2 % (0-10) Platelet Estimate Adequate (ADEQUATE) Medications Current Medications Hydromorphone HCl (Dilaudid) 0.5 mg PRN Q1HR PRN IV/SQ PAIN GREATER THAN 3/10 Last administered on 06/19/18at 16:42; Start 06/19/18 at 14:15; Stop 06/19/18 at 16:42; Status DC Sodium Chloride 1,000 ml @ 1,000 mls/hr Q1H IV Last administered on 06/19/18at 15:48; Start 06/19/18 at 14:13; Stop 06/19/18 at 15:12; Status DC Ondansetron HCl (Zofran) 4 mg 1X ONCE IV Last administered on 06/19/18at 15:55 ; Start 06/19/18 at 14:15; Stop 06/19/18 at 14:33; Status DC Iohexol (Omnipaque 350 Mg/ml) 90 ml 1X ONCE IV Last administered on 06/19/18at 14:51; Start 06/19/18 at 15:00; Stop 06/19/18 at 15:01; Status DC Ondansetron HCl (Zofran) 4 mg PRN Q8HRS PRN IV NAUSEA/VOMITING; Start 06/19/18 at 15:45; Stop 06/19/18 at 15:49; Status DC Morphine Sulfate (Morphine Sulfate) 2 mg PRN Q2HR PRN IV PAIN Last administered on 06/19/18at 16:22; Start 06/19/18 at 15:45; Stop 06/20/18 at 15:44 Sodium Chloride 1,000 ml @ 125 mls/hr Q8H IV ; Start 06/19/18 at 15:44; Stop at 19:43; Status DC Piperacillin Sod/ Tazobactam Sod (Zosyn Per Pharmacy) 1 each PRN DAILY PRN MC SEE COMMENTS; Start 06/19/18 at 16:00 Ondansetron HCl (Zofran) 4 mg PRN Q6HRS PRN IV NAUSEA/VOMITING; Start 06/19/18 at 16:00; Status Cancel Labetalol HCl (Normodyne Iv Push) 20 mg PRN Q2HR PRN IVP HYPERTENSION, SEE COMMENTS Last administered on 06/19/18at 20:00; Start 06/19/18 at 16:00 Famotidine (Pepcid Vial) 20 mg BID IVP Last administered on 06/19/18at 20:16; Start 06/19/18 at 21:00 Piperacillin Sod/ Tazobactam Sod 3.375 gm/Sodium Chloride 50 ml @ 100 mls/hr 1X ONCE IV Last administered on 06/19/18at 16:28; Start 06/19/18 at 16:15; Stop 06/19/18 at 16:44; Status DC Ondansetron HCl (Zofran) 4 mg PRN Q6HRS PRN IV NAUSEA/VOMITING; Start 06/19/18 at 16:30; Stop 06/20/18 at 16:29 Fentanyl Citrate (Fentanyl 2ml Vial) 25 mcg PRN Q5MIN PRN IV MILD PAIN; Start 06/19/18 at 16:30; Stop 06/19/18 at 22:00; Status DC Fentanyl Citrate (Fentanyl 2ml Vial) 50 mcg PRN Q5MIN PRN IV MODERATE TO SEVERE PAIN Last administered on 06/19/18at 20:07; Start 06/19/18 at 16:30; Stop 06/19/18 at 22:00; Status DC Morphine Sulfate (Morphine Sulfate) 1 mg PRN Q10MIN PRN IV SEVERE PAIN; Start 06/19/18 at 16:30; Stop 06/19/18 at 22:00; Status DC Ringer's Solution 1,000 ml @ 30 mls/hr Q24H IV ; Start 06/19/18 at 16:27; Stop 06/20/18 at 04:26; Status DC Hydromorphone HCl (Dilaudid) 0.5 mg PRN Q10MIN PRN IV SEV PAIN, Second choice; Start 06/19/18 at 16:30; Stop 06/19/18 at 22:00; Status DC Prochlorperazine Edisylate (Compazine) 5 mg PACU PRN PRN IV NAUSEA, MRX1; Start 06/19/18 at 16:30; Stop 06/19/18 at 22:00; Status DC Fentanyl Citrate (Fentanyl 5ml Vial) 250 mcg STK-MED ONCE .ROUTE ; Start at 16:33; Stop 06/19/18 at 16:34; Status DC Rocuronium [place] (Zemuron) 50 mg STK-MED ONCE .ROUTE ; Start 06/19/18 at 16:33 ; Stop 06/19/18 at 16:34; Status DC Propofol 20 ml @ As Directed STK-MED ONCE IV ; Start 06/19/18 at 16:34; Stop 02/25 at 16:35; Status DC Lidocaine HCl (Lidocaine Pf 2% Vial) 5 ml STK-MED ONCE .ROUTE ; Start 06/19/18 at 16:34; Stop 06/19/18 at 16:35; Status DC Ondansetron HCl (Zofran) 4 mg STK-MED ONCE .ROUTE ; Start 06/19/18 at 16:34; Stop 06/19/18 at 16:35; Status DC Dexamethasone Sodium Phosphate (Decadron) 20 mg STK-MED ONCE .ROUTE ; Start 02/25 at 16:34; Stop 06/19/18 at 16:35; Status DC Piperacillin Sod/ Tazobactam Sod 3.375 gm/Sodium Chloride 50 ml @ 100 mls/hr Q6HRS IV Last administered on 06/20/18at 05:45; Start 06/19/18 at 23:00 Morphine Sulfate (Morphine Sulfate) 4 mg STK-MED ONCE .ROUTE ; Start 06/19/18 at 17:10; Stop 06/19/18 at 17:11; Status DC Morphine Sulfate (Morphine Sulfate) 4 mg PRN Q10MIN PRN IV PAIN Last administered on 06/19/18at 17:23; Start 06/19/18 at 17:15 Succinylcholine Chloride (Anectine) 200 mg STK-MED ONCE .ROUTE ; Start 06/19/18 at 17:35; Stop 06/19/18 at 17:36; Status DC Glycopyrrolate (Robinul) 1 mg STK-MED ONCE .ROUTE ; Start 06/19/18 at 18:36; Stop 06/19/18 at 18:37; Status DC Ephedrine Sulfate (ePHEDrine PF IN SALINE SYRINGE) 50 mg STK-MED ONCE IV ; Start 06/19/18 at 19:05; Stop 06/19/18 at 19:06; Status DC Neostigmine Methylsulfate (Neostigmine Methylsulfate) 5 mg STK-MED ONCE .ROUTE ; Start 06/19/18 at 19:13; Stop 06/19/18 at 19:14; Status DC Enoxaparin Sodium (Lovenox 40mg Syringe) 40 mg Q12HR SQ ; Start 06/20/18 at 09: 00 Sodium Chloride (Normal Saline Flush) 3 ml QSHIFT PRN IV AFTER MEDS AND BLOOD DRAWS; Start 06/19/18 at 19:45 Potassium Chloride/Sodium Chloride 1,000 ml @ 100 mls/hr Q10H IV Last administered on 06/19/18at 20:17; Start 06/19/18 at 19:42 Hydromorphone HCl 30 ml @ 0 mls/hr CONT PRN PRN IV PER PROTOCOL Last administered on 06/19/18at 20:39; Start 06/19/18 at 19:45 Ondansetron HCl (Zofran) 4 mg PRN Q6HRS PRN IV NAUESA, 1ST CHOICE; Start at 19:45 Throat Lozenges (Cepacol Sore Throat Lozenge) 1 aldair PRN Q2HRS PRN PO SORE THROAT, 1ST CHOICE Last administered on 06/20/18at 07:32; Start 06/19/18 at 19:45 Throat Lozenges (Chloraseptic) 1 spray PRN Q2HR PRN PO SORE THROAT, 2ND CHOICE ; Start 06/19/18 at 19:45 Hydralazine HCl (Apresoline Inj) 10 mg PRN Q4HRS PRN IVP ELEVATED BP, SEE COMMENTS; Start 06/19/18 at 21:15 Active Scripts Active Reported Triamterene-Hctz 37.5-25 Mg Cp (Triamterene/Hydrochlorothiazid) 1 Each Capsule 1 Cap PO DAILY Atorvastatin Calcium 80 Mg Tablet 1 Tab PO DAILY Amlodipine Besylate 10 Mg Tablet 10 Mg PO DAILY Vitals/I & O Vital Sign - Last 24 Hours 06/19/18 06/19/18 06/19/18 06/19/18 14:10 14:23 15:59 16:07 Temp 97.5 97.5 Pulse 45 54 Resp 17 27 16 B/P (MAP) 191/74 (113) 170/72 (104) Pulse Ox 94 97 93 O2 Delivery Room Air Room Air Room Air Room Air 06/19/18 06/19/18 06/19/18 06/19/18 16:15 16:30 17:00 17:23 Pulse 46 48 78 Resp 24 23 20 20 B/P (MAP) 164/71 (102) 186/75 (112) 154/75 Pulse Ox 92 97 95 99 O2 Delivery Room Air Nasal Cannula Nasal Cannula O2 Flow Rate 2 06/19/18 06/19/18 06/19/18/12/19 19:37 19:40 19:45 19:52 Temp 98.0 98.0 98.0 98.0 98.0 98.0 Pulse 61 58 58 58 Resp 18 14 14 20 B/P (MAP) 205/77 199/70 (113) 199/70 (113) 199/70 Pulse Ox 100 99 99 99 O2 Delivery Simple Mask Nasal Cannula Nasal Cannula Simple Mask O2 Flow Rate 10 3.0 3.0 10 06/19/18 06/19/18 06/19/18 06/19/18 20:00 20:00 20:07 20:07 Pulse 60 58 51 Resp 16 16 16 B/P (MAP) 199/70 206/81 Pulse Ox 97 92 100 O2 Delivery Nasal Cannula Room Air O2 Flow Rate 3.0 2 06/19/18 06/19/18 06/19/18 06/19/18 20:15 20:30 20:39 20:45 Pulse 54 48 50 Resp 14 14 16 B/P (MAP) 174/61 (98) 183/67 (105) 168/75 (106) Pulse Ox 92 99 99 100 O2 Delivery Nasal Cannula Nasal Cannula Nasal Cannula Nasal Cannula O2 Flow Rate 3.0 3.0 2.0 3.0 06/19/18 06/19/18 06/19/18 06/19/18 21:00 21:09 21:11 21:15 Pulse 54 56 Resp 13 16 B/P (MAP) 169/66 (100) 160/64 (96) Pulse Ox 100 99 99 O2 Delivery Nasal Cannula Nasal Cannula Nasal Cannula Nasal Cannula O2 Flow Rate 3.0 3.0 3.0 3.0 06/19/18 06/19/18 06/19/18 06/19/18 21:30 21:45 22:00 22:15 Pulse 56 56 56 58 Resp 16 20 20 20 B/P (MAP) 156/61 (92) 159/64 (95) 156/67 (96) 156/64 (94) Pulse Ox 99 98 98 98 O2 Delivery Nasal Cannula Nasal Cannula Nasal Cannula Nasal Cannula O2 Flow Rate 3.0 3.0 3.0 3.0 06/19/18 06/19/18 06/20/18 06/20/18 22:30 23:00 00:00 00:00 Pulse 60 60 64 Resp 16 15 21 B/P (MAP) 141/85 (103) 141/85 (103) 137/62 (87) Pulse Ox 98 96 96 O2 Delivery Nasal Cannula Nasal Cannula Nasal Cannula Nasal Cannula O2 Flow Rate 3.0 3.0 3.0 3.0 06/20/18 06/20/18 06/20/18 06/20/18 00:00 01:00 02:00 03:00 Temp 98.2 98.2 Pulse 64 66 60 Resp 16 16 19 B/P (MAP) 141/61 (87) 144/67 (92) 137/59 (85) Pulse Ox 96 97 98 O2 Delivery Nasal Cannula Nasal Cannula Nasal Cannula O2 Flow Rate 3.0 3.0 3.0 06/20/18 06/20/18 06/20/18 06/20/18 04:00 04:00 05:00 06:00 Temp 98.1 98.1 Pulse 58 60 60 Resp 16 16 20 B/P (MAP) 135/57 (83) 137/55 (82) 135/61 (85) Pulse Ox 98 96 96 O2 Delivery Nasal Cannula Nasal Cannula Nasal Cannula Nasal Cannula O2 Flow Rate 3.0 3.0 3.0 3.0 Intake and Output 06/19/18 06/19/18 06/20/18 15:00 23:00 07:00 Intake Total 850 ml 284.7 ml Output Total 1240 ml 985 ml Balance -390 ml -700.3 ml SHARLA HAMMER MD Jun 20, 2018 08:55
[2018-06-20] MEDS: FAMOTIDINE 20 MG/2 ML VIAL IVP SCH ×2 (08:56→21:09)
[2018-06-20] MEDS ORDERED: ENOXAPARIN 40 MG/0.4 ML SYRINGE. SQ SCH (09:00)
--- NOTE | 2018-06-20 10:09 | PDOC ---
SURGICAL PROGRESS NOTE Subjective feels better Vital Signs Vital Signs Date Time Temp Pulse Resp B/P (MAP) Pulse Ox O2 Delivery O2 Flow Rate FiO2 06/20/18 09:00 60 27 143/56 (85) 96 Nasal Cannula 2.0 06/20/18 08:00 98.2 98.2 I&O Intake and Output 06/20/18 07:00 Intake Total 1134.7 ml Output Total 2325 ml Balance -1190.3 ml Intake IV Total 1134.7 ml Output Urine Total 1925 ml Gastric Drainage Total 400 ml PATIENT HAS A GRAHAM: Yes General: Alert, No acute distress HEENT: Other (NG in place with bilious drainage) Abdomen: Soft, Other (dressing intact) Labs Laboratory Tests Test 06/19/18 13:50 06/19/18 13:51 06/19/18 14:27 06/20/18 04:00 White Blood Count 13.3 x10^3/uL (4.0-11.0) 19.4 x10^3/uL (4.0-11.0) Red Blood Count 4.72 x10^6/uL (4.30-5.70) 4.56 x10^6/uL (4.30-5.70) Hemoglobin 14.4 g/dL (13.0-17.5) 13.9 g/dL (13.0-17.5) Hematocrit 43.7 % (39.0-53.0) 42.2 % (39.0-53.0) Mean Corpuscular Volume 93 fL (79-100) 93 fL (79-100) Mean Corpuscular Hemoglobin 30 pg (25-35) 31 pg (25-35) Mean Corpuscular Hemoglobin Concent 33 g/dL (31-37) 33 g/dL (31-37) Red Cell Distribution Width 14.7 % (11.5-14.5) 14.8 % (11.5-14.5) Platelet Count 285 x10^3/uL (140-400) 224 x10^3/uL (140-400) Neutrophils (%) (Auto) 64 % (31-73) 95 % (31-73) Lymphocytes (%) (Auto) 22 % (24-48) 2 % (24-48) Monocytes (%) (Auto) 9 % (0-9) 3 % (0-9) Eosinophils (%) (Auto) 5 % (0-3) 0 % (0-3) Basophils (%) (Auto) 1 % (0-3) 0 % (0-3) Neutrophils # (Auto) 8.6 x10^3uL (1.8-7.7) 18.4 x10^3uL (1.8-7.7) Lymphocytes # (Auto) 2.9 x10^3/uL (1.0-4.8) 0.4 x10^3/uL (1.0-4.8) Monocytes # (Auto) 1.1 x10^3/uL (0.0-1.1) 0.6 x10^3/uL (0.0-1.1) Eosinophils # (Auto) 0.6 x10^3/uL (0.0-0.7) 0.0 x10^3/uL (0.0-0.7) Basophils # (Auto) 0.1 x10^3/uL (0.0-0.2) 0.0 x10^3/uL (0.0-0.2) Prothrombin Time 12.8 SEC (11.7-14.0) Prothromb Time International Ratio 1.0 (0.8-1.1) Sodium Level 142 mmol/L (136-145) 139 mmol/L (136-145) Potassium Level 4.0 mmol/L (3.5-5.1) 4.3 mmol/L (3.5-5.1) Chloride Level 102 mmol/L (98-107) 103 mmol/L (98-107) Carbon Dioxide Level 25 mmol/L (21-32) 25 mmol/L (21-32) Anion Gap 15 (6-14) 16 mmol/L (6-14) 11 (6-14) Blood Urea Nitrogen 29 mg/dL (8-26) 25 mg/dL (8-26) Creatinine 0.6 mg/dL (0.7-1.3) 0.5 mg/dL (0.7-1.3) Estimated GFR (Cockcroft-Gault) 134.4 165.9 Glucose Level 108 mg/dL (70-99) 111 mg/dL (70-99) 135 mg/dL (70-99) Calcium Level 9.1 mg/dL (8.5-10.1) 8.5 mg/dL (8.5-10.1) Total Bilirubin 0.5 mg/dL (0.2-1.0) Direct Bilirubin 0.1 mg/dL (0.0-0.2) Aspartate Amino Transf (AST/SGOT) 18 U/L (15-37) Alanine Aminotransferase (ALT/SGPT) 21 U/L (16-63) Alkaline Phosphatase 76 U/L (46-116) Total Protein 7.3 g/dL (6.4-8.2) Albumin 3.6 g/dL (3.4-5.0) Lipase 54 U/L (73-393) Lactic Acid Level 1.8 mmol/L (0.4-2.0) 1.1 mmol/L (0.4-2.0) Bedside Hemoglobin 14.3 g/dL (14-18) Bedside Hematocrit 42 % (37-52) Bedside Sodium 142 mmol/L (135-145) Bedside Potassium 3.5 mmol/L (3.5-5.0) Bedside Chloride 105 mmol/L (98-110) Bedside Total CO2 25 mmol/L (23-32) Bedside Blood Urea Nitrogen 27 mg/dL (8-26) Bedside Creatinine 0.5 mg/dL (0.5-1.4) Bedside Ionized Calcium (Elizabeth) 1.12 mmol/L (1.13-1.32) Segmented Neutrophils % 84 % (35-66) Band Neutrophils % 12 % (0-9) Lymphocytes % 2 % (24-48) Monocytes % 2 % (0-10) Platelet Estimate Adequate (ADEQUATE) Laboratory Tests Test 06/19/18 13:50 06/19/18 13:51 06/19/18 14:27 06/20/18 04:00 White Blood Count 13.3 x10^3/uL (4.0-11.0) 19.4 x10^3/uL (4.0-11.0) Red Blood Count 4.72 x10^6/uL (4.30-5.70) 4.56 x10^6/uL (4.30-5.70) Hemoglobin 14.4 g/dL (13.0-17.5) 13.9 g/dL (13.0-17.5) Hematocrit 43.7 % (39.0-53.0) 42.2 % (39.0-53.0) Mean Corpuscular Volume 93 fL (79-100) 93 fL (79-100) Mean Corpuscular Hemoglobin 30 pg (25-35) 31 pg (25-35) Mean Corpuscular Hemoglobin Concent 33 g/dL (31-37) 33 g/dL (31-37) Red Cell Distribution Width 14.7 % (11.5-14.5) 14.8 % (11.5-14.5) Platelet Count 285 x10^3/uL (140-400) 224 x10^3/uL (140-400) Neutrophils (%) (Auto) 64 % (31-73) 95 % (31-73) Lymphocytes (%) (Auto) 22 % (24-48) 2 % (24-48) Monocytes (%) (Auto) 9 % (0-9) 3 % (0-9) Eosinophils (%) (Auto) 5 % (0-3) 0 % (0-3) Basophils (%) (Auto) 1 % (0-3) 0 % (0-3) Neutrophils # (Auto) 8.6 x10^3uL (1.8-7.7) 18.4 x10^3uL (1.8-7.7) Lymphocytes # (Auto) 2.9 x10^3/uL (1.0-4.8) 0.4 x10^3/uL (1.0-4.8) Monocytes # (Auto) 1.1 x10^3/uL (0.0-1.1) 0.6 x10^3/uL (0.0-1.1) Eosinophils # (Auto) 0.6 x10^3/uL (0.0-0.7) 0.0 x10^3/uL (0.0-0.7) Basophils # (Auto) 0.1 x10^3/uL (0.0-0.2) 0.0 x10^3/uL (0.0-0.2) Prothrombin Time 12.8 SEC (11.7-14.0) Prothromb Time International Ratio 1.0 (0.8-1.1) Sodium Level 142 mmol/L (136-145) 139 mmol/L (136-145) Potassium Level 4.0 mmol/L (3.5-5.1) 4.3 mmol/L (3.5-5.1) Chloride Level 102 mmol/L (98-107) 103 mmol/L (98-107) Carbon Dioxide Level 25 mmol/L (21-32) 25 mmol/L (21-32) Anion Gap 15 (6-14) 16 mmol/L (6-14) 11 (6-14) Blood Urea Nitrogen 29 mg/dL (8-26) 25 mg/dL (8-26) Creatinine 0.6 mg/dL (0.7-1.3) 0.5 mg/dL (0.7-1.3) Estimated GFR (Cockcroft-Gault) 134.4 165.9 Glucose Level 108 mg/dL (70-99) 111 mg/dL (70-99) 135 mg/dL (70-99) Calcium Level 9.1 mg/dL (8.5-10.1) 8.5 mg/dL (8.5-10.1) Total Bilirubin 0.5 mg/dL (0.2-1.0) Direct Bilirubin 0.1 mg/dL (0.0-0.2) Aspartate Amino Transf (AST/SGOT) 18 U/L (15-37) Alanine Aminotransferase (ALT/SGPT) 21 U/L (16-63) Alkaline Phosphatase 76 U/L (46-116) Total Protein 7.3 g/dL (6.4-8.2) Albumin 3.6 g/dL (3.4-5.0) Lipase 54 U/L (73-393) Lactic Acid Level 1.8 mmol/L (0.4-2.0) 1.1 mmol/L (0.4-2.0) Bedside Hemoglobin 14.3 g/dL (14-18) Bedside Hematocrit 42 % (37-52) Bedside Sodium 142 mmol/L (135-145) Bedside Potassium 3.5 mmol/L (3.5-5.0) Bedside Chloride 105 mmol/L (98-110) Bedside Total CO2 25 mmol/L (23-32) Bedside Blood Urea Nitrogen 27 mg/dL (8-26) Bedside Creatinine 0.5 mg/dL (0.5-1.4) Bedside Ionized Calcium (Elizabeth) 1.12 mmol/L (1.13-1.32) Segmented Neutrophils % 84 % (35-66) Band Neutrophils % 12 % (0-9) Lymphocytes % 2 % (24-48) Monocytes % 2 % (0-10) Platelet Estimate Adequate (ADEQUATE) Problem List Problems Medical Problems: (1) Abdominal pain Status: Acute (2) Bowel obstruction Status: Acute Assessment/Plan POD 1 SBR for ischemic bowel NG trial in the AM OK to move to floor from GS standpoint SULMA DOWNEY MD Jun 20, 2018 10:09
[2018-06-20] MEDS ORDERED: ATOR10TA60 PO (11:34)
--- NOTE | 2018-06-20 11:35 | NUR ---
This nurse called [facility] to verify home medications, updated per verification. This nurse will continue to assist as needed.
--- NOTE | 2018-06-20 14:14 | NUR ---
Pt arrived from ICU at approx 1015, escorted by RN via wheelchair. All belongings with pt. Stable. Alert x4. Will continue to monitor closely. Initial vitals WNL
--- NOTE | 2018-06-20 15:23 | OP ---
DATE OF SURGERY: 06/19/2018 PREOPERATIVE DIAGNOSIS: Small bowel obstruction. POSTOPERATIVE DIAGNOSES: Small-bowel obstruction with ischemic small bowel. PROCEDURES: 1. Exploratory laparotomy. 2. Small bowel resection with primary anastomosis. 3. Appendectomy. 4. Primary repair of bilateral inguinal hernias. SURGEON: Houston Downey MD WIRELESS WATCHER: MAGNOLIA Dc. ANESTHESIA: General endotracheal. ESTIMATED BLOOD LOSS: 50 mL. IV FLUIDS: 1600. URINE OUTPUT: 500. INDICATIONS: The patient is a 67-year-old vasculopath who presented with severe lower abdominal pain and a CT scan suggesting a possible closed loop obstruction. He is brought for exploration. OPERATIVE FINDINGS: Moderate amount of serosanguineous fluid was present in the abdomen. There was a segment of mid distal ileum, which was ischemic. Appendix unremarkable. Bilateral large inguinal hernias containing small bowel and omentum. DESCRIPTION OF PROCEDURE: The patient brought to the operating suite, given a general endotracheal anesthetic. Schneider catheter placed to dependent drainage and the abdomen prepped and draped in usual sterile fashion. Midline incision from umbilicus to pubis. Abdomen carefully entered and explored with results as noted above. With the Omni self-retaining retractor for exposure, the ischemic loop of small bowel was freed from its adhesive band. A viable bowel proximal and distal to the process was identified and divided with a SD stapler. Small bowel mesentery serially clamped, divided and ligated with Vicryl ties. An end-to-end anastomosis with posterior row of 3-0 Vicryl. Bowel occluded with atraumatic clamps. Staple lines excised and mucosal anastomosis created with a running locked 3-0 chromic, first posteriorly, then anteriorly. Clamps removed. Anastomosis completed with an anterior row of interrupted 3-0 Vicryl suture. Competency and patency of the anastomosis was seen. The mesenteric rent approximated carefully with 2-0 chromic, avoiding compromise of blood supply to the anastomosis. Gloves were changed. The appendix was ligated with a 0 chromic tie. The mesoappendix divided and ligated with Vicryl tie. A 2-0 silk pursestring placed around the base of the appendix. Appendix excised and the stump inverted and held in place with pursestring suture. The bilateral inguinal hernias were repaired by using a running stitch of 0 Vicryl. Abdomen irrigated, evacuated and checked for adequate hemostasis. When present and a correct sponge count was obtained, the incision was closed using 0 Vicryl for the posterior sheath peritoneum, second sponge count correct. Anterior sheath closed in running fashion with looped 0 PDS tied in the middle. Skin closed with carlos. Sterile dressing applied. Postop foreign body film negative for unexplained foreign body. The patient was awakened from his anesthetic and taken to the recovery room in satisfactory condition. HOUSTON DOWNEY MD DR: PAUL/say JOB#: [id number] / [id number]
[2018-06-20] MEDS ORDERED: ALBUTEROL SULFATE 2.5 MG/3 ML NEBU. NEB PRN (17:00)
[2018-06-20] MEDS: ALBUTEROL SULFATE 2.5 MG/3 ML NEBU. NEB PRN (17:07)
[2018-06-20] MEDS: LABETALOL 20 MG/4 ML DISP.SYRIN. IVP PRN (18:17)
[2018-06-20] MEDS: HYDROmorphone 12mg/30ml PCA 30 ML IV PRN (22:19)
[2018-06-21] MEDS: POTASSIUM CL 20MEQ-0.45% NACL 1,000 ML IV SCH (02:09)
[2018-06-21 03:22] VITALS: BP 155/68
[2018-06-21] MEDS: PIPERACILLIN/TAZOBACTAM 3.375 GM in IV NORMAL SALINE 50ML 50 ML IV SCH ×5 (05:48→17:42)
[2018-06-21 07:00] VITALS: BP 144/64
--- NOTE | 2018-06-21 08:08 | RAD ---
Arterial Doppler bilateral lower extremities. HISTORY: Femoral artery occlusion Duplex ultrasound was used to evaluate the arteries of the lower extremities. Real-time imaging, color flow imaging and Doppler were utilized. There is flow at the right common femoral artery with a monophasic flow pattern with velocity of 92 cm/s. There is a biphasic flow in the deep femoral artery on the right with a velocity of 289 cm/s suggesting increased flow or stenosis. There is occlusion of the femoral artery proximally on the right side with minimal reconstituted flow in the mid femoral. There is mild increased flow distally probably from collateralization with a velocity of 44 cm/s and a monophasic flow pattern. There is better flow at the popliteal artery with a monophasic flow with a velocity of 29 cm/s. There is monophasic flow in the right posterior tibial with velocity of 27 cm/s. There is monophasic flow in the right peroneal artery. There is monophasic flow in the proximal anterior tibial artery. There is biphasic flow at the common femoral on the left side with a velocity of 110 cm/s. There is monophasic flow in the deep femoral on the right with a velocity of 75 cm/s. There is biphasic flow in the proximal SFA with velocity of 98 cm/s. There is a focal stenosis in the mid left SFA with a velocity increasing to 217 cm/s. Popliteal artery has biphasic flow with velocity of 60 cm/s. There is biphasic flow in the posterior tibial on the left with a velocity of 37 cm/s. There is a monophasic flow in the left. Needle artery with low velocity flow. There is no definite flow in the anterior tibial at the foot. There is flow in the proximal left anterior tibial. IMPRESSION: 1. Occlusion of the proximal right superficial femoral artery. 2. Reconstitution of the right distal superficial femoral and popliteal arteries. 3. Biphasic flow at the common femorals bilaterally suggesting aortoiliac disease. 3. Focal stenosis in the mid left superficial femoral artery. Electronically signed by: Joel Payton MD (06/21/2018 8:05 AM) [facility]
[2018-06-21] MEDS: ENOXAPARIN 40 MG/0.4 ML SYRINGE. SQ SCH (09:21)
[2018-06-21] MEDS: FAMOTIDINE 20 MG/2 ML VIAL IVP SCH ×2 (09:22→21:12)
--- NOTE | 2018-06-21 09:45 | PDOC ---
SURGICAL PROGRESS NOTE Subjective POD 2 up to chair NG got pulled out last noc, no c/o n/v Vital Signs Vital Signs Date Time Temp Pulse Resp B/P (MAP) Pulse Ox O2 Delivery O2 Flow Rate FiO2 06/21/18 07:00 97.8 58 18 144/64 (90) 93 Nasal Cannula 2.5 97.8 I&O Intake and Output 06/21/18 07:00 Output Total 1535 ml Balance -1535 ml Output Urine Total 1535 ml PATIENT HAS A GRAHAM: Yes General: Alert, No acute distress Abdomen: Other (incision c/d) Labs Laboratory Tests Test 06/19/18 13:50 06/19/18 13:51 06/19/18 14:27 06/20/18 00:15 White Blood Count 13.3 x10^3/uL (4.0-11.0) Red Blood Count 4.72 x10^6/uL (4.30-5.70) Hemoglobin 14.4 g/dL (13.0-17.5) Hematocrit 43.7 % (39.0-53.0) Mean Corpuscular Volume 93 fL (79-100) Mean Corpuscular Hemoglobin 30 pg (25-35) Mean Corpuscular Hemoglobin Concent 33 g/dL (31-37) Red Cell Distribution Width 14.7 % (11.5-14.5) Platelet Count 285 x10^3/uL (140-400) Neutrophils (%) (Auto) 64 % (31-73) Lymphocytes (%) (Auto) 22 % (24-48) Monocytes (%) (Auto) 9 % (0-9) Eosinophils (%) (Auto) 5 % (0-3) Basophils (%) (Auto) 1 % (0-3) Neutrophils # (Auto) 8.6 x10^3uL (1.8-7.7) Lymphocytes # (Auto) 2.9 x10^3/uL (1.0-4.8) Monocytes # (Auto) 1.1 x10^3/uL (0.0-1.1) Eosinophils # (Auto) 0.6 x10^3/uL (0.0-0.7) Basophils # (Auto) 0.1 x10^3/uL (0.0-0.2) Prothrombin Time 12.8 SEC (11.7-14.0) Prothromb Time International Ratio 1.0 (0.8-1.1) Sodium Level 142 mmol/L (136-145) Potassium Level 4.0 mmol/L (3.5-5.1) Chloride Level 102 mmol/L (98-107) Carbon Dioxide Level 25 mmol/L (21-32) Anion Gap 15 (6-14) 16 mmol/L (6-14) Blood Urea Nitrogen 29 mg/dL (8-26) Creatinine 0.6 mg/dL (0.7-1.3) Estimated GFR (Cockcroft-Gault) 134.4 Glucose Level 108 mg/dL (70-99) 111 mg/dL (70-99) Calcium Level 9.1 mg/dL (8.5-10.1) Total Bilirubin 0.5 mg/dL (0.2-1.0) Direct Bilirubin 0.1 mg/dL (0.0-0.2) Aspartate Amino Transf (AST/SGOT) 18 U/L (15-37) Alanine Aminotransferase (ALT/SGPT) 21 U/L (16-63) Alkaline Phosphatase 76 U/L (46-116) Total Protein 7.3 g/dL (6.4-8.2) Albumin 3.6 g/dL (3.4-5.0) Lipase 54 U/L (73-393) Lactic Acid Level 1.8 mmol/L (0.4-2.0) Bedside Hemoglobin 14.3 g/dL (14-18) Bedside Hematocrit 42 % (37-52) Bedside Sodium 142 mmol/L (135-145) Bedside Potassium 3.5 mmol/L (3.5-5.0) Bedside Chloride 105 mmol/L (98-110) Bedside Total CO2 25 mmol/L (23-32) Bedside Blood Urea Nitrogen 27 mg/dL (8-26) Bedside Creatinine 0.5 mg/dL (0.5-1.4) Bedside Ionized Calcium (Elizabeth) 1.12 mmol/L (1.13-1.32) Nasal Screen MRSA (PCR) Negative (Negative) Test 06/20/18 04:00 White Blood Count 19.4 x10^3/uL (4.0-11.0) Red Blood Count 4.56 x10^6/uL (4.30-5.70) Hemoglobin 13.9 g/dL (13.0-17.5) Hematocrit 42.2 % (39.0-53.0) Mean Corpuscular Volume 93 fL (79-100) Mean Corpuscular Hemoglobin 31 pg (25-35) Mean Corpuscular Hemoglobin Concent 33 g/dL (31-37) Red Cell Distribution Width 14.8 % (11.5-14.5) Platelet Count 224 x10^3/uL (140-400) Neutrophils (%) (Auto) 95 % (31-73) Lymphocytes (%) (Auto) 2 % (24-48) Monocytes (%) (Auto) 3 % (0-9) Eosinophils (%) (Auto) 0 % (0-3) Basophils (%) (Auto) 0 % (0-3) Neutrophils # (Auto) 18.4 x10^3uL (1.8-7.7) Lymphocytes # (Auto) 0.4 x10^3/uL (1.0-4.8) Monocytes # (Auto) 0.6 x10^3/uL (0.0-1.1) Eosinophils # (Auto) 0.0 x10^3/uL (0.0-0.7) Basophils # (Auto) 0.0 x10^3/uL (0.0-0.2) Segmented Neutrophils % 84 % (35-66) Band Neutrophils % 12 % (0-9) Lymphocytes % 2 % (24-48) Monocytes % 2 % (0-10) Platelet Estimate Adequate (ADEQUATE) Sodium Level 139 mmol/L (136-145) Potassium Level 4.3 mmol/L (3.5-5.1) Chloride Level 103 mmol/L (98-107) Carbon Dioxide Level 25 mmol/L (21-32) Anion Gap 11 (6-14) Blood Urea Nitrogen 25 mg/dL (8-26) Creatinine 0.5 mg/dL (0.7-1.3) Estimated GFR (Cockcroft-Gault) 165.9 Glucose Level 135 mg/dL (70-99) Lactic Acid Level 1.1 mmol/L (0.4-2.0) Calcium Level 8.5 mg/dL (8.5-10.1) Problem List Problems Medical Problems: (1) Abdominal pain Status: Acute (2) Bowel obstruction Status: Acute Assessment/Plan POD 2 SBR start clears ambulate SULMA DOWNEY MD Jun 21, 2018 09:45
--- NOTE | 2018-06-21 09:55 | PDOC ---
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 Smoker History of Present Illness History of Present Illness Transferred out of iCU 06/20 HAd stat OR bec of ischemic bowel/closed loop obstrxn STill NPO< on MMI TEACHER MInimal pain SMoker - not needing a patch VAsc sx has seen - OP ff up GS recs TPN via PICC bec of bowel rest PLAN: PICC< TPN Amenable to tapering MMI TEACHER today and stopping it tmr HE claims he does not need a stas patch while in house Vitals Vitals Vital Signs Date Time Temp Pulse Resp B/P (MAP) Pulse Ox O2 Delivery O2 Flow Rate FiO2 06/21/18 07:00 97.8 58 18 144/64 (90) 93 Nasal Cannula 2.5 97.8 Physical Exam General: Alert, No acute distress Heart: Regular rate Lungs: Clear Abdomen: Soft, Other (incision c/d, carlos) Extremities: No clubbing, No cyanosis, Other (marked bilateral leg varicocities ) Skin: No rashes, No breakdown, No significant lesion Review of Systems Review of Systems post op soreness, no cp, soa, fevers, diarrhea etc Assessment and Plan Assessmemt and Plan Problems Medical Problems: (1) Abdominal pain Status: Acute (2) Bowel obstruction Status: Acute Comment Review of Relevant I have reviewed the following items charles (where applicable) has been applied. Labs Laboratory Tests Test 06/19/18 13:50 06/19/18 13:51 06/19/18 14:27 06/20/18 00:15 White Blood Count 13.3 x10^3/uL (4.0-11.0) Red Blood Count 4.72 x10^6/uL (4.30-5.70) Hemoglobin 14.4 g/dL (13.0-17.5) Hematocrit 43.7 % (39.0-53.0) Mean Corpuscular Volume 93 fL (79-100) Mean Corpuscular Hemoglobin 30 pg (25-35) Mean Corpuscular Hemoglobin Concent 33 g/dL (31-37) Red Cell Distribution Width 14.7 % (11.5-14.5) Platelet Count 285 x10^3/uL (140-400) Neutrophils (%) (Auto) 64 % (31-73) Lymphocytes (%) (Auto) 22 % (24-48) Monocytes (%) (Auto) 9 % (0-9) Eosinophils (%) (Auto) 5 % (0-3) Basophils (%) (Auto) 1 % (0-3) Neutrophils # (Auto) 8.6 x10^3uL (1.8-7.7) Lymphocytes # (Auto) 2.9 x10^3/uL (1.0-4.8) Monocytes # (Auto) 1.1 x10^3/uL (0.0-1.1) Eosinophils # (Auto) 0.6 x10^3/uL (0.0-0.7) Basophils # (Auto) 0.1 x10^3/uL (0.0-0.2) Prothrombin Time 12.8 SEC (11.7-14.0) Prothromb Time International Ratio 1.0 (0.8-1.1) Sodium Level 142 mmol/L (136-145) Potassium Level 4.0 mmol/L (3.5-5.1) Chloride Level 102 mmol/L (98-107) Carbon Dioxide Level 25 mmol/L (21-32) Anion Gap 15 (6-14) 16 mmol/L (6-14) Blood Urea Nitrogen 29 mg/dL (8-26) Creatinine 0.6 mg/dL (0.7-1.3) Estimated GFR (Cockcroft-Gault) 134.4 Glucose Level 108 mg/dL (70-99) 111 mg/dL (70-99) Calcium Level 9.1 mg/dL (8.5-10.1) Total Bilirubin 0.5 mg/dL (0.2-1.0) Direct Bilirubin 0.1 mg/dL (0.0-0.2) Aspartate Amino Transf (AST/SGOT) 18 U/L (15-37) Alanine Aminotransferase (ALT/SGPT) 21 U/L (16-63) Alkaline Phosphatase 76 U/L (46-116) Total Protein 7.3 g/dL (6.4-8.2) Albumin 3.6 g/dL (3.4-5.0) Lipase 54 U/L (73-393) Lactic Acid Level 1.8 mmol/L (0.4-2.0) Bedside Hemoglobin 14.3 g/dL (14-18) Bedside Hematocrit 42 % (37-52) Bedside Sodium 142 mmol/L (135-145) Bedside Potassium 3.5 mmol/L (3.5-5.0) Bedside Chloride 105 mmol/L (98-110) Bedside Total CO2 25 mmol/L (23-32) Bedside Blood Urea Nitrogen 27 mg/dL (8-26) Bedside Creatinine 0.5 mg/dL (0.5-1.4) Bedside Ionized Calcium (Elizabeth) 1.12 mmol/L (1.13-1.32) Nasal Screen MRSA (PCR) Negative (Negative) Test 06/20/18 04:00 White Blood Count 19.4 x10^3/uL (4.0-11.0) Red Blood Count 4.56 x10^6/uL (4.30-5.70) Hemoglobin 13.9 g/dL (13.0-17.5) Hematocrit 42.2 % (39.0-53.0) Mean Corpuscular Volume 93 fL (79-100) Mean Corpuscular Hemoglobin 31 pg (25-35) Mean Corpuscular Hemoglobin Concent 33 g/dL (31-37) Red Cell Distribution Width 14.8 % (11.5-14.5) Platelet Count 224 x10^3/uL (140-400) Neutrophils (%) (Auto) 95 % (31-73) Lymphocytes (%) (Auto) 2 % (24-48) Monocytes (%) (Auto) 3 % (0-9) Eosinophils (%) (Auto) 0 % (0-3) Basophils (%) (Auto) 0 % (0-3) Neutrophils # (Auto) 18.4 x10^3uL (1.8-7.7) Lymphocytes # (Auto) 0.4 x10^3/uL (1.0-4.8) Monocytes # (Auto) 0.6 x10^3/uL (0.0-1.1) Eosinophils # (Auto) 0.0 x10^3/uL (0.0-0.7) Basophils # (Auto) 0.0 x10^3/uL (0.0-0.2) Segmented Neutrophils % 84 % (35-66) Band Neutrophils % 12 % (0-9) Lymphocytes % 2 % (24-48) Monocytes % 2 % (0-10) Platelet Estimate Adequate (ADEQUATE) Sodium Level 139 mmol/L (136-145) Potassium Level 4.3 mmol/L (3.5-5.1) Chloride Level 103 mmol/L (98-107) Carbon Dioxide Level 25 mmol/L (21-32) Anion Gap 11 (6-14) Blood Urea Nitrogen 25 mg/dL (8-26) Creatinine 0.5 mg/dL (0.7-1.3) Estimated GFR (Cockcroft-Gault) 165.9 Glucose Level 135 mg/dL (70-99) Lactic Acid Level 1.1 mmol/L (0.4-2.0) Calcium Level 8.5 mg/dL (8.5-10.1) Medications Current Medications Hydromorphone HCl (Dilaudid) 0.5 mg PRN Q1HR PRN IV/SQ PAIN GREATER THAN 3/10 Last administered on 06/19/18at 16:42; Start 06/19/18 at 14:15; Stop 06/19/18 at 16:42; Status DC Sodium Chloride 1,000 ml @ 1,000 mls/hr Q1H IV Last administered on 06/19/18at 15:48; Start 06/19/18 at 14:13; Stop 06/19/18 at 15:12; Status DC Ondansetron HCl (Zofran) 4 mg 1X ONCE IV Last administered on 06/19/18at 15:55 ; Start 06/19/18 at 14:15; Stop 06/19/18 at 14:33; Status DC Iohexol (Omnipaque 350 Mg/ml) 90 ml 1X ONCE IV Last administered on 06/19/18at 14:51; Start 06/19/18 at 15:00; Stop 06/19/18 at 15:01; Status DC Ondansetron HCl (Zofran) 4 mg PRN Q8HRS PRN IV NAUSEA/VOMITING; Start 06/19/18 at 15:45; Stop 06/19/18 at 15:49; Status DC Morphine Sulfate (Morphine Sulfate) 2 mg PRN Q2HR PRN IV PAIN Last administered on 06/19/18at 16:22; Start 06/19/18 at 15:45; Stop 06/20/18 at 15:44 ; Status DC Sodium Chloride 1,000 ml @ 125 mls/hr Q8H IV ; Start 06/19/18 at 15:44; Stop at 19:43; Status DC Piperacillin Sod/ Tazobactam Sod (Zosyn Per Pharmacy) 1 each PRN DAILY PRN MC SEE COMMENTS; Start 06/19/18 at 16:00 Ondansetron HCl (Zofran) 4 mg PRN Q6HRS PRN IV NAUSEA/VOMITING; Start 06/19/18 at 16:00; Status Cancel Labetalol HCl (Normodyne Iv Push) 20 mg PRN Q2HR PRN IVP HTN, SEE COMMENTS, 1ST CHOICE Last administered on 06/20/18at 18:17; Start 06/19/18 at 16:00 Famotidine (Pepcid Vial) 20 mg BID IVP Last administered on 06/21/18at 09:22; Start 06/19/18 at 21:00 Piperacillin Sod/ Tazobactam Sod 3.375 gm/Sodium Chloride 50 ml @ 100 mls/hr 1X ONCE IV Last administered on 06/19/18at 16:28; Start 06/19/18 at 16:15; Stop 06/19/18 at 16:44; Status DC Ondansetron HCl (Zofran) 4 mg PRN Q6HRS PRN IV NAUSEA/VOMITING; Start 06/19/18 at 16:30; Stop 06/20/18 at 16:29; Status DC Fentanyl Citrate (Fentanyl 2ml Vial) 25 mcg PRN Q5MIN PRN IV MILD PAIN; Start 06/19/18 at 16:30; Stop 06/19/18 at 22:00; Status DC Fentanyl Citrate (Fentanyl 2ml Vial) 50 mcg PRN Q5MIN PRN IV MODERATE TO SEVERE PAIN Last administered on 06/19/18at 20:07; Start 06/19/18 at 16:30; Stop 06/19/18 at 22:00; Status DC Morphine Sulfate (Morphine Sulfate) 1 mg PRN Q10MIN PRN IV SEVERE PAIN; Start 06/19/18 at 16:30; Stop 06/19/18 at 22:00; Status DC Ringer's Solution 1,000 ml @ 30 mls/hr Q24H IV ; Start 06/19/18 at 16:27; Stop 06/20/18 at 04:26; Status DC Hydromorphone HCl (Dilaudid) 0.5 mg PRN Q10MIN PRN IV SEV PAIN, Second choice; Start 06/19/18 at 16:30; Stop 06/19/18 at 22:00; Status DC Prochlorperazine Edisylate (Compazine) 5 mg PACU PRN PRN IV NAUSEA, MRX1; Start 06/19/18 at 16:30; Stop 06/19/18 at 22:00; Status DC Fentanyl Citrate (Fentanyl 5ml Vial) 250 mcg STK-MED ONCE .ROUTE ; Start at 16:33; Stop 06/19/18 at 16:34; Status DC Rocuronium Capulin (Zemuron) 50 mg STK-MED ONCE .ROUTE ; Start 06/19/18 at 16:33 ; Stop 06/19/18 at 16:34; Status DC Propofol 20 ml @ As Directed STK-MED ONCE IV ; Start 06/19/18 at 16:34; Stop 02/25 at 16:35; Status DC Lidocaine HCl (Lidocaine Pf 2% Vial) 5 ml STK-MED ONCE .ROUTE ; Start 06/19/18 at 16:34; Stop 06/19/18 at 16:35; Status DC Ondansetron HCl (Zofran) 4 mg STK-MED ONCE .ROUTE ; Start 06/19/18 at 16:34; Stop 06/19/18 at 16:35; Status DC Dexamethasone Sodium Phosphate (Decadron) 20 mg STK-MED ONCE .ROUTE ; Start 02/25 at 16:34; Stop 06/19/18 at 16:35; Status DC Piperacillin Sod/ Tazobactam Sod 3.375 gm/Sodium Chloride 50 ml @ 100 mls/hr Q6HRS IV Last administered on 06/21/18at 05:48; Start 06/19/18 at 23:00 Morphine Sulfate (Morphine Sulfate) 4 mg STK-MED ONCE .ROUTE ; Start 06/19/18 at 17:10; Stop 06/19/18 at 17:11; Status DC Morphine Sulfate (Morphine Sulfate) 4 mg PRN Q10MIN PRN IV PAIN Last administered on 06/19/18at 17:23; Start 06/19/18 at 17:15; Stop 06/20/18 at 11:58 ; Status DC Succinylcholine Chloride (Anectine) 200 mg STK-MED ONCE .ROUTE ; Start 06/19/18 at 17:35; Stop 06/19/18 at 17:36; Status DC Glycopyrrolate (Robinul) 1 mg STK-MED ONCE .ROUTE ; Start 06/19/18 at 18:36; Stop 06/19/18 at 18:37; Status DC Ephedrine Sulfate (ePHEDrine PF IN SALINE SYRINGE) 50 mg STK-MED ONCE IV ; Start 06/19/18 at 19:05; Stop 06/19/18 at 19:06; Status DC Neostigmine Methylsulfate (Neostigmine Methylsulfate) 5 mg STK-MED ONCE .ROUTE ; Start 06/19/18 at 19:13; Stop 06/19/18 at 19:14; Status DC Enoxaparin Sodium (Lovenox 40mg Syringe) 40 mg Q12HR SQ Last administered on at 08:56; Start 06/20/18 at 09:00; Stop 06/20/18 at 09:30; Status DC Sodium Chloride (Normal Saline Flush) 3 ml QSHIFT PRN IV AFTER MEDS AND BLOOD DRAWS; Start 06/19/18 at 19:45 Potassium Chloride/Sodium Chloride 1,000 ml @ 100 mls/hr Q10H IV Last administered on 06/21/18at 02:09; Start 06/19/18 at 19:42; Stop 06/21/18 at 08:13 ; Status DC Hydromorphone HCl 30 ml @ 0 mls/hr CONT PRN PRN IV PER PROTOCOL Last administered on 06/20/18at 22:19; Start 06/19/18 at 19:45 Ondansetron HCl (Zofran) 4 mg PRN Q6HRS PRN IV NAUESA, 1ST CHOICE; Start at 19:45 Throat Lozenges (Cepacol Sore Throat Lozenge) 1 aldair PRN Q2HRS PRN PO SORE THROAT, 1ST CHOICE Last administered on 06/20/18at 08:54; Start 06/19/18 at 19:45 Throat Lozenges (Chloraseptic) 1 spray PRN Q2HR PRN PO SORE THROAT, 2ND CHOICE ; Start 06/19/18 at 19:45 Hydralazine HCl (Apresoline Inj) 10 mg PRN Q4HRS PRN IVP ELEVATED BP, SEE COMMENTS; Start 06/19/18 at 21:15 Enoxaparin Sodium (Lovenox 40mg Syringe) 40 mg Q24H SQ Last administered on at 09:21; Start 06/21/18 at 09:00 Albuterol Sulfate (Ventolin Neb Soln) 2.5 mg PRN Q4HRS PRN NEB SHORTNESS OF BREATH; Start 06/20/18 at 17:00; Stop 06/20/18 at 17:00; Status DC Albuterol Sulfate (Ventolin Neb Soln) 2.5 mg PRN Q4HRS PRN NEB SHORTNESS OF BREATH Last administered on 06/20/18at 17:07; Start 06/20/18 at 16:57 Sodium Chloride 1,000 ml @ 100 mls/hr Q10H IV ; Start 06/21/18 at 08:15 Active Scripts Active Reported Atorvastatin Calcium 10 Mg Tablet 1 Tab PO DAILY Triamterene-Hctz 37.5-25 Mg Cp (Triamterene/Hydrochlorothiazid) 1 Each Capsule 1 Cap PO DAILY Amlodipine Besylate 10 Mg Tablet 10 Mg PO DAILY Vitals/I & O Vital Sign - Last 24 Hours 06/20/18 06/20/18 06/20/18 06/20/18 10:25 15:00 17:12 18:17 Temp 98.4 98.4 Pulse 59 66 66 Resp 20 22 B/P (MAP) 145/52 (83) 125/57 (79) 170/64 Pulse Ox 96 96 93 O2 Delivery Nasal Cannula Nasal Cannula Nasal Cannula O2 Flow Rate 2.0 1.5 2.0 06/20/18 06/20/18 06/20/18 06/20/18 19:00 20:00 22:19 22:49 Temp 97.9 97.9 Pulse 63 Resp 20 B/P (MAP) 139/62 (87) Pulse Ox 93 93 96 O2 Delivery Nasal Cannula Nasal Cannula Nasal Cannula Nasal Cannula O2 Flow Rate 1.5 2.5 2.5 1.5 06/20/18 06/21/18 06/21/18 23:00 03:22 07:00 Temp 98.7 98.6 97.8 98.7 98.6 97.8 Pulse 60 55 58 Resp 18 18 18 B/P (MAP) 150/58 (88) 155/68 (97) 144/64 (90) Pulse Ox 96 94 93 O2 Delivery Nasal Cannula Nasal Cannula Nasal Cannula O2 Flow Rate 1.5 2.0 2.5 Intake and Output 06/20/18 06/20/18 06/21/18 15:00 23:00 07:00 Output Total 185 ml 1350 ml Balance -185 ml -1350 ml BERTHA WRIGHT MD Jun 21, 2018 09:55
--- NOTE | 2018-06-21 10:11 | PDOC ---
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
[2018-06-21 11:00] VITALS: BP 139/54
[2018-06-21] MEDS: IV NORMAL SALINE 1000ML BAG 1,000 ML IV SCH ×2 (12:48→21:12)
[2018-06-21] MEDS: NICOTINE 21MG PATCH. TD PRN (13:05)
--- NOTE | 2018-06-21 13:07 | RAD ---
Carotid Doppler. HISTORY: Carotid bruit Duplex ultrasound was used to evaluate the carotid arteries. Real-time imaging, color flow imaging and Doppler were utilized. There is mild hypoechoic and echogenic plaque in the right common carotid artery. There is shadowing echogenic plaque at the carotid bifurcation on the right side. Peak velocity in the right internal carotid artery was 94 cm/s with end-diastolic velocity of 29 cm/s. Systolic velocity index 1.5. There is antegrade flow in the right vertebral. There is echogenic plaque at the carotid bifurcation and internal carotid artery on the left side. Peak velocity in the left internal carotid artery was 257 cm/s with an end-diastolic velocity of 51 cm/s and a systolic velocity index of 2.9. Velocity measurements which suggests greater than 70 percent stenosis. The systolic velocity index would suggest 50-69 percent stenosis. There is antegrade flow in the left vertebral. IMPRESSION: 1. Less than 50 percent stenosis at the proximal right internal carotid artery. 2. Greater than 70 percent stenosis at the carotid bifurcation on the left side. 3. Antegrade flow in each vertebral. PQRS Compliance Statement - Stenosis calculations for carotid ultrasound studies are derived from validated velocity criteria which are known to correlate with the NASCET methodology. Electronically signed by: Joel Payton MD (06/21/2018 1:05 PM) [facility]
--- NOTE | 2018-06-21 13:14 | NUR ---
Jennie discontinued this am. Pt did refuse to ambulate twice today already. Will encourage ambulation again this shift.
[2018-06-21] MEDS: ALBUTEROL SULFATE 2.5 MG/3 ML NEBU. NEB PRN (13:33)
--- NOTE | 2018-06-21 14:05 | PDOC2 ---
CONSULT Date of Consult Date of Consult DATE: 06/21/18 TIME: 13:44 Reason for Consult Reason for Consult: Descending aortic aneurysm Referring Physician Referring Physician: Dr Dallas Identification/Chief Complaint Chief Complaint SBO Source Source: Chart review, Patient History of Present Illness Reason for Visit: The patient is a 67 year old male who was admitted 2 days ago with a SBO. He had a strangulated inguinal hernia with a closed loop obstruction. 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 I was consulted for further management. Past Medical History Cardiovascular: HTN Past Surgical History Past Surgical History: Other (aortic repair) Family History Family History: Family History Unknown Social History <1 pack per day ALCOHOL: none Drugs: None Current Problem List Problem List Problems Medical Problems: (1) Abdominal pain Status: Acute (2) Bowel obstruction Status: Acute Current Medications Current Medications Current Medications Hydromorphone HCl (Dilaudid) 0.5 mg PRN Q1HR PRN IV/SQ PAIN GREATER THAN 3/10 Last administered on 06/19/18at 16:42; Start 06/19/18 at 14:15; Stop 06/19/18 at 16:42; Status DC Sodium Chloride 1,000 ml @ 1,000 mls/hr Q1H IV Last administered on 06/19/18at 15:48; Start 06/19/18 at 14:13; Stop 06/19/18 at 15:12; Status DC Ondansetron HCl (Zofran) 4 mg 1X ONCE IV Last administered on 06/19/18at 15:55 ; Start 06/19/18 at 14:15; Stop 06/19/18 at 14:33; Status DC Iohexol (Omnipaque 350 Mg/ml) 90 ml 1X ONCE IV Last administered on 06/19/18at 14:51; Start 06/19/18 at 15:00; Stop 06/19/18 at 15:01; Status DC Ondansetron HCl (Zofran) 4 mg PRN Q8HRS PRN IV NAUSEA/VOMITING; Start 06/19/18 at 15:45; Stop 06/19/18 at 15:49; Status DC Morphine Sulfate (Morphine Sulfate) 2 mg PRN Q2HR PRN IV PAIN Last administered on 06/19/18at 16:22; Start 06/19/18 at 15:45; Stop 06/20/18 at 15:44 ; Status DC Sodium Chloride 1,000 ml @ 125 mls/hr Q8H IV ; Start 06/19/18 at 15:44; Stop at 19:43; Status DC Piperacillin Sod/ Tazobactam Sod (Zosyn Per Pharmacy) 1 each PRN DAILY PRN MC SEE COMMENTS; Start 06/19/18 at 16:00 Ondansetron HCl (Zofran) 4 mg PRN Q6HRS PRN IV NAUSEA/VOMITING; Start 06/19/18 at 16:00; Status Cancel Labetalol HCl (Normodyne Iv Push) 20 mg PRN Q2HR PRN IVP HTN, SEE COMMENTS, 1ST CHOICE Last administered on 06/20/18at 18:17; Start 06/19/18 at 16:00 Famotidine (Pepcid Vial) 20 mg BID IVP Last administered on 06/21/18at 09:22; Start 06/19/18 at 21:00 Piperacillin Sod/ Tazobactam Sod 3.375 gm/Sodium Chloride 50 ml @ 100 mls/hr 1X ONCE IV Last administered on 06/19/18at 16:28; Start 06/19/18 at 16:15; Stop 06/19/18 at 16:44; Status DC Ondansetron HCl (Zofran) 4 mg PRN Q6HRS PRN IV NAUSEA/VOMITING; Start 06/19/18 at 16:30; Stop 06/20/18 at 16:29; Status DC Fentanyl Citrate (Fentanyl 2ml Vial) 25 mcg PRN Q5MIN PRN IV MILD PAIN; Start 06/19/18 at 16:30; Stop 06/19/18 at 22:00; Status DC Fentanyl Citrate (Fentanyl 2ml Vial) 50 mcg PRN Q5MIN PRN IV MODERATE TO SEVERE PAIN Last administered on 06/19/18at 20:07; Start 06/19/18 at 16:30; Stop 06/19/18 at 22:00; Status DC Morphine Sulfate (Morphine Sulfate) 1 mg PRN Q10MIN PRN IV SEVERE PAIN; Start 06/19/18 at 16:30; Stop 06/19/18 at 22:00; Status DC Ringer's Solution 1,000 ml @ 30 mls/hr Q24H IV ; Start 06/19/18 at 16:27; Stop 06/20/18 at 04:26; Status DC Hydromorphone HCl (Dilaudid) 0.5 mg PRN Q10MIN PRN IV SEV PAIN, Second choice; Start 06/19/18 at 16:30; Stop 06/19/18 at 22:00; Status DC Prochlorperazine Edisylate (Compazine) 5 mg PACU PRN PRN IV NAUSEA, MRX1; Start 06/19/18 at 16:30; Stop 06/19/18 at 22:00; Status DC Fentanyl Citrate (Fentanyl 5ml Vial) 250 mcg STK-MED ONCE .ROUTE ; Start at 16:33; Stop 06/19/18 at 16:34; Status DC Rocuronium Hammond (Zemuron) 50 mg STK-MED ONCE .ROUTE ; Start 06/19/18 at 16:33 ; Stop 06/19/18 at 16:34; Status DC Propofol 20 ml @ As Directed STK-MED ONCE IV ; Start 06/19/18 at 16:34; Stop 02/25 at 16:35; Status DC Lidocaine HCl (Lidocaine Pf 2% Vial) 5 ml STK-MED ONCE .ROUTE ; Start 06/19/18 at 16:34; Stop 06/19/18 at 16:35; Status DC Ondansetron HCl (Zofran) 4 mg STK-MED ONCE .ROUTE ; Start 06/19/18 at 16:34; Stop 06/19/18 at 16:35; Status DC Dexamethasone Sodium Phosphate (Decadron) 20 mg STK-MED ONCE .ROUTE ; Start 02/25 at 16:34; Stop 06/19/18 at 16:35; Status DC Piperacillin Sod/ Tazobactam Sod 3.375 gm/Sodium Chloride 50 ml @ 100 mls/hr Q6HRS IV Last administered on 06/21/18at 12:48; Start 06/19/18 at 23:00 Morphine Sulfate (Morphine Sulfate) 4 mg STK-MED ONCE .ROUTE ; Start 06/19/18 at 17:10; Stop 06/19/18 at 17:11; Status DC Morphine Sulfate (Morphine Sulfate) 4 mg PRN Q10MIN PRN IV PAIN Last administered on 06/19/18at 17:23; Start 06/19/18 at 17:15; Stop 06/20/18 at 11:58 ; Status DC Succinylcholine Chloride (Anectine) 200 mg STK-MED ONCE .ROUTE ; Start 06/19/18 at 17:35; Stop 06/19/18 at 17:36; Status DC Glycopyrrolate (Robinul) 1 mg STK-MED ONCE .ROUTE ; Start 06/19/18 at 18:36; Stop 06/19/18 at 18:37; Status DC Ephedrine Sulfate (ePHEDrine PF IN SALINE SYRINGE) 50 mg STK-MED ONCE IV ; Start 06/19/18 at 19:05; Stop 06/19/18 at 19:06; Status DC Neostigmine Methylsulfate (Neostigmine Methylsulfate) 5 mg STK-MED ONCE .ROUTE ; Start 06/19/18 at 19:13; Stop 06/19/18 at 19:14; Status DC Enoxaparin Sodium (Lovenox 40mg Syringe) 40 mg Q12HR SQ Last administered on at 08:56; Start 06/20/18 at 09:00; Stop 06/20/18 at 09:30; Status DC Sodium Chloride (Normal Saline Flush) 3 ml QSHIFT PRN IV AFTER MEDS AND BLOOD DRAWS; Start 06/19/18 at 19:45 Potassium Chloride/Sodium Chloride 1,000 ml @ 100 mls/hr Q10H IV Last administered on 06/21/18at 02:09; Start 06/19/18 at 19:42; Stop 06/21/18 at 08:13 ; Status DC Hydromorphone HCl 30 ml @ 0 mls/hr CONT PRN PRN IV PER PROTOCOL Last administered on 06/20/18at 22:19; Start 06/19/18 at 19:45 Ondansetron HCl (Zofran) 4 mg PRN Q6HRS PRN IV NAUESA, 1ST CHOICE; Start at 19:45 Throat Lozenges (Cepacol Sore Throat Lozenge) 1 aldair PRN Q2HRS PRN PO SORE THROAT, 1ST CHOICE Last administered on 06/20/18at 08:54; Start 06/19/18 at 19:45 Throat Lozenges (Chloraseptic) 1 spray PRN Q2HR PRN PO SORE THROAT, 2ND CHOICE ; Start 06/19/18 at 19:45 Hydralazine HCl (Apresoline Inj) 10 mg PRN Q4HRS PRN IVP ELEVATED BP, SEE COMMENTS; Start 06/19/18 at 21:15 Enoxaparin Sodium (Lovenox 40mg Syringe) 40 mg Q24H SQ Last administered on at 09:21; Start 06/21/18 at 09:00 Albuterol Sulfate (Ventolin Neb Soln) 2.5 mg PRN Q4HRS PRN NEB SHORTNESS OF BREATH; Start 06/20/18 at 17:00; Stop 06/20/18 at 17:00; Status DC Albuterol Sulfate (Ventolin Neb Soln) 2.5 mg PRN Q4HRS PRN NEB SHORTNESS OF BREATH Last administered on 06/21/18at 13:33; Start 06/20/18 at 16:57 Sodium Chloride 1,000 ml @ 100 mls/hr Q10H IV Last administered on 06/21/18at 12:48; Start 06/21/18 at 08:15 Nicotine (Nicoderm Cq 21mg) 1 patch PRN DAILY PRN TD SMOKING CESSATION Last administered on 06/21/18at 13:05; Start 06/21/18 at 10:30 Active Scripts Active Reported Atorvastatin Calcium 10 Mg Tablet 1 Tab PO DAILY Triamterene-Hctz 37.5-25 Mg Cp (Triamterene/Hydrochlorothiazid) 1 Each Capsule 1 Cap PO DAILY Amlodipine Besylate 10 Mg Tablet 10 Mg PO DAILY Allergies Allergies: Coded Allergies: lisinopril (Verified Allergy, Severe, Anaphylaxis, 06/20/18) ROS General: No: Chills, Night Sweats, Fatigue, Malaise, Appetite PSYCHOLOGICAL ROS: No: Anxiety, Behavioral Disorder, Concentration difficultie , Decreased libido, Depression, Disorientation, Hallucinations, Hostility, Irritablity, Memory difficulties, Mood Swings, Obsessive thoughts, Physical abuse, Sexual abuse, Sleep disturbances, Suicidal ideation Eyes: No Blurry vision, No Decreased vision, No Double vision, No Dry eyes, No Excessive tearing, No Eye Pain, No Itchy Eyes, No Loss of vision, No Photophobia , No Scotomata, No Uses contacts, No Uses glasses HEENT: No: Heacaches, Visual Changes, Hearing change, Nasal congestion, Nasal discharge, Oral lesions, Sinus pain, Sore Throat, Epistaxis, Sneezing, Snoring, Tinnitus, Vertigo, Vocal changes ALLERGY AND IMMUNOLOGY: No: Hives, Insect Bite Sensitivity, Itchy/Watery Eyes, Nasal Congestion, Post Nasal Drip, Seasonal Allergies Hematological and Lymphatic: No: Bleeding Problems, Blood Clots, Blood Transfusions, Brusing, Night Sweats, Pallor, Swollen Lymph Nodes ENDOCRINE: No: Breast Changes, Galactorrhea, Hair Pattern Changes, Hot Flashes , Malaise/lethargy, Mood Swings, Palpitations, Polydipsia/polyuria, Skin Changes , Temperature Intolerance, Unexpected Weight Changes Breast: No New/Changing Breast Lumps, No Nipple changes, No Nipple discharge Respiratory: No: Cough, Hemoptysis, Orthopnea, Pleuritic Pain, Shortness of breath, SOB with excertion, Sputum Changes, Stridor, Tachypnea, Wheezing Cardiovascular: No Chest Pain, No Palpitations, No Orthopnea, No Paroxysmal Noc. Dyspnea, No Edema, No Lt Headedness Gastrointestinal: Yes Nausea, Yes Vomiting, Yes Abdominal Pain, Yes Constipation; No Diarrhea, No Melena, No Hematochezia Genitourinary: No Dysuria, No Frequency, No Incontinence, No Hematuria, No Retention, No Discharge, No Urgency, No Pain, No Flank Pain Musculoskeletal: No Gait Disturbance, No Joint Pain, No Joint Stiffness, No Joint Swelling, No Muscle Pain, No Muscular Weakness, No Pain In:, No Swelling In: Neurological: No Behavorial Changes, No Bowel/Bladder ControlChng, No Confusion , No Dizziness, No Gait Disturbance, No Headaches, No Impaired Coord/balance, No Memory Loss, No Numbness/Tingling, No Seizures, No Speech Problems, No Tremors, No Visual Changes, No Weakness Skin: No Dry Skin, No Eczema, No Hair Changes, No Lumps, No Mole Changes, No Mottling, No Nail Changes, No Pruritus, No Rash, No Skin Lesion Changes, No Acne Physical Exam General: Alert, Oriented X3, No acute distress HEENT: Atraumatic, PERRLA Lungs: Clear to auscultation Heart: Regular rate, Normal S1, Normal S2 Abdomen: Other Extremities: No edema Skin: No significant lesion Neuro: Normal gait, Normal speech, Strength at 5/5 X4 ext, Normal tone, Sensation intact, Cranial nerves 3-12 NL, Reflexes 2+ Psych/Mental Status: Mental status NL MUSCULOSKELETAL: No deformity Vitals VITALS Vital Signs Date Time Temp Pulse Resp B/P (MAP) Pulse Ox O2 Delivery O2 Flow Rate FiO2 06/21/18 13:35 93 Nasal Cannula 2.0 06/21/18 11:00 98.0 57 18 139/54 (82) 98.0 Labs Labs Laboratory Tests Test 06/19/18 13:50 06/19/18 13:51 06/19/18 14:27 06/20/18 00:15 White Blood Count 13.3 x10^3/uL (4.0-11.0) Red Blood Count 4.72 x10^6/uL (4.30-5.70) Hemoglobin 14.4 g/dL (13.0-17.5) Hematocrit 43.7 % (39.0-53.0) Mean Corpuscular Volume 93 fL (79-100) Mean Corpuscular Hemoglobin 30 pg (25-35) Mean Corpuscular Hemoglobin Concent 33 g/dL (31-37) Red Cell Distribution Width 14.7 % (11.5-14.5) Platelet Count 285 x10^3/uL (140-400) Neutrophils (%) (Auto) 64 % (31-73) Lymphocytes (%) (Auto) 22 % (24-48) Monocytes (%) (Auto) 9 % (0-9) Eosinophils (%) (Auto) 5 % (0-3) Basophils (%) (Auto) 1 % (0-3) Neutrophils # (Auto) 8.6 x10^3uL (1.8-7.7) Lymphocytes # (Auto) 2.9 x10^3/uL (1.0-4.8) Monocytes # (Auto) 1.1 x10^3/uL (0.0-1.1) Eosinophils # (Auto) 0.6 x10^3/uL (0.0-0.7) Basophils # (Auto) 0.1 x10^3/uL (0.0-0.2) Prothrombin Time 12.8 SEC (11.7-14.0) Prothromb Time International Ratio 1.0 (0.8-1.1) Sodium Level 142 mmol/L (136-145) Potassium Level 4.0 mmol/L (3.5-5.1) Chloride Level 102 mmol/L (98-107) Carbon Dioxide Level 25 mmol/L (21-32) Anion Gap 15 (6-14) 16 mmol/L (6-14) Blood Urea Nitrogen 29 mg/dL (8-26) Creatinine 0.6 mg/dL (0.7-1.3) Estimated GFR (Cockcroft-Gault) 134.4 Glucose Level 108 mg/dL (70-99) 111 mg/dL (70-99) Calcium Level 9.1 mg/dL (8.5-10.1) Total Bilirubin 0.5 mg/dL (0.2-1.0) Direct Bilirubin 0.1 mg/dL (0.0-0.2) Aspartate Amino Transf (AST/SGOT) 18 U/L (15-37) Alanine Aminotransferase (ALT/SGPT) 21 U/L (16-63) Alkaline Phosphatase 76 U/L (46-116) Total Protein 7.3 g/dL (6.4-8.2) Albumin 3.6 g/dL (3.4-5.0) Lipase 54 U/L (73-393) Lactic Acid Level 1.8 mmol/L (0.4-2.0) Bedside Hemoglobin 14.3 g/dL (14-18) Bedside Hematocrit 42 % (37-52) Bedside Sodium 142 mmol/L (135-145) Bedside Potassium 3.5 mmol/L (3.5-5.0) Bedside Chloride 105 mmol/L (98-110) Bedside Total CO2 25 mmol/L (23-32) Bedside Blood Urea Nitrogen 27 mg/dL (8-26) Bedside Creatinine 0.5 mg/dL (0.5-1.4) Bedside Ionized Calcium (Elizabeth) 1.12 mmol/L (1.13-1.32) Nasal Screen MRSA (PCR) Negative (Negative) Test 06/20/18 04:00 White Blood Count 19.4 x10^3/uL (4.0-11.0) Red Blood Count 4.56 x10^6/uL (4.30-5.70) Hemoglobin 13.9 g/dL (13.0-17.5) Hematocrit 42.2 % (39.0-53.0) Mean Corpuscular Volume 93 fL (79-100) Mean Corpuscular Hemoglobin 31 pg (25-35) Mean Corpuscular Hemoglobin Concent 33 g/dL (31-37) Red Cell Distribution Width 14.8 % (11.5-14.5) Platelet Count 224 x10^3/uL (140-400) Neutrophils (%) (Auto) 95 % (31-73) Lymphocytes (%) (Auto) 2 % (24-48) Monocytes (%) (Auto) 3 % (0-9) Eosinophils (%) (Auto) 0 % (0-3) Basophils (%) (Auto) 0 % (0-3) Neutrophils # (Auto) 18.4 x10^3uL (1.8-7.7) Lymphocytes # (Auto) 0.4 x10^3/uL (1.0-4.8) Monocytes # (Auto) 0.6 x10^3/uL (0.0-1.1) Eosinophils # (Auto) 0.0 x10^3/uL (0.0-0.7) Basophils # (Auto) 0.0 x10^3/uL (0.0-0.2) Segmented Neutrophils % 84 % (35-66) Band Neutrophils % 12 % (0-9) Lymphocytes % 2 % (24-48) Monocytes % 2 % (0-10) Platelet Estimate Adequate (ADEQUATE) Sodium Level 139 mmol/L (136-145) Potassium Level 4.3 mmol/L (3.5-5.1) Chloride Level 103 mmol/L (98-107) Carbon Dioxide Level 25 mmol/L (21-32) Anion Gap 11 (6-14) Blood Urea Nitrogen 25 mg/dL (8-26) Creatinine 0.5 mg/dL (0.7-1.3) Estimated GFR (Cockcroft-Gault) 165.9 Glucose Level 135 mg/dL (70-99) Lactic Acid Level 1.1 mmol/L (0.4-2.0) Calcium Level 8.5 mg/dL (8.5-10.1) Assessment/Plan Assessment/Plan The patient is a 67 year old male who was admitted 2 days ago with a SBO. He had a strangulated inguinal hernia with a closed loop obstruction. 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 I was consulted for further management. I have reviewed the CTA. 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 It does not require treatment unless >3cm. His diverticulum is less than 1cm. It does not pose any risk for rupture. In terms of the descending thoracic aorta, is not aneurysmal, but rather ectatic , with a diameter which is close to normal. No intervention needed. He can follow up with me in 6-12 montha with a CTA beforehand to confirm stability of the diverticulum and descending aorta. STEPHANY STRONG MD Jun 21, 2018 14:05
[2018-06-21 15:00] VITALS: BP 146/63
[2018-06-21] MEDS ORDERED: traMADol 50 MG TABLET PO PRN (17:00)
[2018-06-21] MEDS: IBUPROFEN 400 MG TABLET. PO PRN (17:40)
[2018-06-21 19:00] VITALS: BP 158/58
[2018-06-21 23:00] VITALS: BP 151/61
[2018-06-22] MEDS: PIPERACILLIN/TAZOBACTAM 3.375 GM in IV NORMAL SALINE 50ML 50 ML IV SCH ×3 (00:03→11:59)
--- NOTE | 2018-06-22 02:22 | CONS ---
DATE OF CONSULTATION: 06/21/2018 CHIEF COMPLAINT: Peripheral arterial disease. HISTORY OF PRESENT ILLNESS: The patient is a 67-year-old male who presented to the hospital with abdominal pain and underwent abdominal surgery for a closed loop small bowel obstruction yesterday. 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 Vascular Surgery was consulted. The patient reports that he has neuropathy pains in both of his feet at baseline. This is a numbness and tingling sensation. He has no pain in his legs during ambulation or cramps in his calves. He reports occasional night cramps, but does not get pain or cramps during ambulation. He has no severe pain in his feet at rest. He has noticed no swelling in his legs. He does report varicose veins in his lower extremities, worse in the left leg than the right leg. His aortic surgery was reportedly several years ago at [facility] by Dr. Odom. He reports no history of stroke symptoms in the past. It was also noted on a CT scan that he has a small saccular aortic arch aneurysm and a small descending aortic aneurysm, which he was unaware of prior to this CAT scan. He reports no chest pain or shortness of breath. REVIEW OF SYSTEMS: A 10-point review of systems was performed, which was otherwise negative besides what is mentioned in the history of present illness. PAST MEDICAL HISTORY: Includes: 1. Hypertension. 2. Peripheral arterial disease. 3. Lower extremity varicose veins. PAST SURGICAL HISTORY: Includes aortic bypass surgery by Dr. Odom a few years ago. FAMILY HISTORY: There is no pertinent history related to his current problem. SOCIAL HISTORY: He smokes on a daily basis, has done so for many years, he does not drink alcohol. ALLERGIES: INCLUDE LISINOPRIL. MEDICATIONS: Please see his full MAR. PHYSICAL EXAMINATION: GENERAL: The patient is awake and alert, currently sitting up in the chair, resting comfortably. VITAL SIGNS: He is afebrile. His vital signs are stable. He is 93% on 2.5 liters of oxygen. NECK: Supple with bilateral carotid bruits, worse on the right than the left. HEART: Regular rate and rhythm. LUNGS: Bilateral breath sounds to auscultation with no shortness of breath. ABDOMEN: Soft, nondistended. He has a midline abdominal incision with a dry dressing. EXTREMITIES: His bilateral lower extremities are warm without edema. He has visible varicose veins in his lower extremities, worse in the left leg than the right. There is no tissue breakdown in his feet and his feet are pink and warm with good capillary refill. I do not palpate pedal pulses in his feet. He does have bilateral femoral pulses in his groins. NEUROLOGIC: He is awake and alert, oriented x 3, moving all 4 extremities with normal strength, normal speech, no gross neurologic deficits. IMPRESSION: 1. 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 2. Carotid artery bruits. 3. Recent abdominal surgery for a closed loop obstruction by General Surgery. PLAN: 1. The patient has a long history of peripheral arterial disease, has undergone aortic bypass surgery in the past, which is patent by CT scan. He does have signs of peripheral arterial disease in his bilateral lower extremities. Duplex scan of the right leg shows proximal superficial femoral artery occlusion; however, there is reconstitution distally. He is currently asymptomatic from his peripheral arterial disease with no claudication, no rest pain and no tissue breakdown. No vascular intervention is needed at this time. I do recommend that he follow up in our office and this appointment will be arranged to follow his circulation in the future. 2. Carotid artery bruit heard on examination. We will order a carotid artery duplex scan here in the hospital. 3. Small saccular aortic arch aneurysm and small descending aortic aneurysm. These will need to be followed in the future by Cardiothoracic Surgery. They will be consulted here in the hospital to establish care. 4. Recommend starting daily aspirin when okay with General Surgery. 5. Recommend smoking cessation. NATTY ALMODOVAR MD DR: VALENTIN/say JOB#: [id number] / [id number]
[2018-06-22 03:00] VITALS: BP 156/62
[2018-06-22] MEDS: IV NORMAL SALINE 1000ML BAG 1,000 ML IV SCH (04:15)
[2018-06-22 06:05] LABS: BASO # 0.1 x10^3/uL (0.0-0.2); BASO % 0 % (0-3); EOS # 0.2 x10^3/uL (0.0-0.7); EOS % 1 % (0-3); HEMATOCRIT 41.1 % (39.0-53.0); HEMOGLOBIN 13.4 g/dL (13.0-17.5); LYMPH # 1.4 x10^3/uL (1.0-4.8); LYMPH % 10 % (24-48); MEAN CORPUSCULAR HEMOGLOBIN 30 pg (25-35); MEAN CORPUSCULAR HGB CONC 33 g/dL (31-37); MEAN CORPUSCULAR VOLUME 92 fL (79-100); MONO # 1.3 x10^3/uL (0.0-1.1); MONO % 10 % (0-9); NEUT # 10.5 x10^3uL (1.8-7.7); NEUT % 78 % (31-73); PLATELET COUNT 231 x10^3/uL (140-400); RED BLOOD COUNT 4.46 x10^6/uL (4.30-5.70); RED CELL DISTRIBUTION WIDTH 14.7 % (11.5-14.5); WHITE BLOOD COUNT 13.4 x10^3/uL (4.0-11.0)
[2018-06-22 06:22] LABS: CALCIUM 8.6 mg/dL (8.5-10.1); CREATININE 0.7 mg/dL (0.7-1.3); GFR 112.5; POTASSIUM 3.8 mmol/L (3.5-5.1)
[2018-06-22 07:00] VITALS: BP 148/62
[2018-06-22] MEDS: IBUPROFEN 400 MG TABLET. PO PRN (07:07)
[2018-06-22] MEDS: FAMOTIDINE 20 MG/2 ML VIAL IVP SCH (08:45)
--- NOTE | 2018-06-22 08:46 | PDOC ---
MARI HURTADO BRAKE LINING CURER 06/22/18 0846: SURGICAL PROGRESS NOTE Subjective + flatus no pain wants to go home Vital Signs Vital Signs Date Time Temp Pulse Resp B/P (MAP) Pulse Ox O2 Delivery O2 Flow Rate FiO2 06/22/18 07:07 93 Nasal Cannula 2.5 06/22/18 07:00 98.0 65 18 148/62 (90) 98.0 I&O Intake and Output 06/22/18 07:00 Intake Total 1380 ml Output Total 5075 ml Balance -3695 ml Intake Oral 1380 ml Output Urine Total 5075 ml General: Alert, Oriented X3, Cooperative, No acute distress Abdomen: Soft, Other (incision c/d/i, no erythema ) Labs Laboratory Tests Test 06/22/18 05:10 White Blood Count 13.4 x10^3/uL (4.0-11.0) Red Blood Count 4.46 x10^6/uL (4.30-5.70) Hemoglobin 13.4 g/dL (13.0-17.5) Hematocrit 41.1 % (39.0-53.0) Mean Corpuscular Volume 92 fL (79-100) Mean Corpuscular Hemoglobin 30 pg (25-35) Mean Corpuscular Hemoglobin Concent 33 g/dL (31-37) Red Cell Distribution Width 14.7 % (11.5-14.5) Platelet Count 231 x10^3/uL (140-400) Neutrophils (%) (Auto) 78 % (31-73) Lymphocytes (%) (Auto) 10 % (24-48) Monocytes (%) (Auto) 10 % (0-9) Eosinophils (%) (Auto) 1 % (0-3) Basophils (%) (Auto) 0 % (0-3) Neutrophils # (Auto) 10.5 x10^3uL (1.8-7.7) Lymphocytes # (Auto) 1.4 x10^3/uL (1.0-4.8) Monocytes # (Auto) 1.3 x10^3/uL (0.0-1.1) Eosinophils # (Auto) 0.2 x10^3/uL (0.0-0.7) Basophils # (Auto) 0.1 x10^3/uL (0.0-0.2) Sodium Level 144 mmol/L (136-145) Potassium Level 3.8 mmol/L (3.5-5.1) Chloride Level 106 mmol/L (98-107) Carbon Dioxide Level 27 mmol/L (21-32) Anion Gap 11 (6-14) Blood Urea Nitrogen 14 mg/dL (8-26) Creatinine 0.7 mg/dL (0.7-1.3) Estimated GFR (Cockcroft-Gault) 112.5 Glucose Level 91 mg/dL (70-99) Calcium Level 8.6 mg/dL (8.5-10.1) Laboratory Tests Test 06/22/18 05:10 White Blood Count 13.4 x10^3/uL (4.0-11.0) Red Blood Count 4.46 x10^6/uL (4.30-5.70) Hemoglobin 13.4 g/dL (13.0-17.5) Hematocrit 41.1 % (39.0-53.0) Mean Corpuscular Volume 92 fL (79-100) Mean Corpuscular Hemoglobin 30 pg (25-35) Mean Corpuscular Hemoglobin Concent 33 g/dL (31-37) Red Cell Distribution Width 14.7 % (11.5-14.5) Platelet Count 231 x10^3/uL (140-400) Neutrophils (%) (Auto) 78 % (31-73) Lymphocytes (%) (Auto) 10 % (24-48) Monocytes (%) (Auto) 10 % (0-9) Eosinophils (%) (Auto) 1 % (0-3) Basophils (%) (Auto) 0 % (0-3) Neutrophils # (Auto) 10.5 x10^3uL (1.8-7.7) Lymphocytes # (Auto) 1.4 x10^3/uL (1.0-4.8) Monocytes # (Auto) 1.3 x10^3/uL (0.0-1.1) Eosinophils # (Auto) 0.2 x10^3/uL (0.0-0.7) Basophils # (Auto) 0.1 x10^3/uL (0.0-0.2) Sodium Level 144 mmol/L (136-145) Potassium Level 3.8 mmol/L (3.5-5.1) Chloride Level 106 mmol/L (98-107) Carbon Dioxide Level 27 mmol/L (21-32) Anion Gap 11 (6-14) Blood Urea Nitrogen 14 mg/dL (8-26) Creatinine 0.7 mg/dL (0.7-1.3) Estimated GFR (Cockcroft-Gault) 112.5 Glucose Level 91 mg/dL (70-99) Calcium Level 8.6 mg/dL (8.5-10.1) Problem List Problems Medical Problems: (1) Abdominal pain Status: Acute (2) Bowel obstruction Status: Acute Assessment/Plan POD#3 SBR advance diet SULMA DOWNEY MD 06/22/18 1220: SURGICAL PROGRESS NOTE Assessment/Plan pt seen agree with above OK for dismissal from surgical standpoint follow up next week MARI HURTADO [employer]KE [employer]ING CURER Jun 22, 2018 08:46 SULMA DOWNEY MD Jun 22, 2018 12:20
[2018-06-22] MEDS: ENOXAPARIN 40 MG/0.4 ML SYRINGE. SQ SCH (08:47)
[2018-06-22] MEDS ORDERED: ASPIRIN CHEWABLE 81 MG TABLET. PO SCH (09:00)
[2018-06-22] MEDS: NICOTINE 21MG PATCH. TD PRN (10:32)
[2018-06-22] MEDS ORDERED: IOHEXOL 300 MG/ML 100ML VIAL. IV ONE (10:45)
[2018-06-22 11:00] VITALS: BP 147/60
[2018-06-22] MEDS ORDERED: CONTRAST GIVEN. MC PRN (11:00)
--- NOTE | 2018-06-22 11:14 | PDOC ---
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 Smoker History of Present Illness History of Present Illness Transferred out of [facility] 06/20 HAd stat OR bec of ischemic bowel/closed loop obstrxn advancing diet, off [employer]INE[employer] MInimal pain SMoker - not needing a patch VAsc sx has seen - OP ff up GS recs TPN via PICC bec of bowel rest PLAN: PICC< TPN patient anxious to go home continue abx for now Vitals Vitals Vital Signs Date Time Temp Pulse Resp B/P (MAP) Pulse Ox O2 Delivery O2 Flow Rate FiO2 06/22/18 08:07 18 Nasal Cannula 2.0 06/22/18 07:07 93 06/22/18 07:00 98.0 65 148/62 (90) 98.0 Physical Exam General: Alert, Oriented X3, Cooperative, No acute distress Heart: Regular rate, Normal S1, Normal S2 Lungs: Clear Abdomen: Soft, Other (incision c/d/i, no erythema ) Extremities: No edema Skin: No significant lesion Labs LABS Laboratory Tests Test 06/22/18 05:10 White Blood Count 13.4 x10^3/uL (4.0-11.0) Red Blood Count 4.46 x10^6/uL (4.30-5.70) Hemoglobin 13.4 g/dL (13.0-17.5) Hematocrit 41.1 % (39.0-53.0) Mean Corpuscular Volume 92 fL (79-100) Mean Corpuscular Hemoglobin 30 pg (25-35) Mean Corpuscular Hemoglobin Concent 33 g/dL (31-37) Red Cell Distribution Width 14.7 % (11.5-14.5) Platelet Count 231 x10^3/uL (140-400) Neutrophils (%) (Auto) 78 % (31-73) Lymphocytes (%) (Auto) 10 % (24-48) Monocytes (%) (Auto) 10 % (0-9) Eosinophils (%) (Auto) 1 % (0-3) Basophils (%) (Auto) 0 % (0-3) Neutrophils # (Auto) 10.5 x10^3uL (1.8-7.7) Lymphocytes # (Auto) 1.4 x10^3/uL (1.0-4.8) Monocytes # (Auto) 1.3 x10^3/uL (0.0-1.1) Eosinophils # (Auto) 0.2 x10^3/uL (0.0-0.7) Basophils # (Auto) 0.1 x10^3/uL (0.0-0.2) Sodium Level 144 mmol/L (136-145) Potassium Level 3.8 mmol/L (3.5-5.1) Chloride Level 106 mmol/L (98-107) Carbon Dioxide Level 27 mmol/L (21-32) Anion Gap 11 (6-14) Blood Urea Nitrogen 14 mg/dL (8-26) Creatinine 0.7 mg/dL (0.7-1.3) Estimated GFR (Cockcroft-Gault) 112.5 Glucose Level 91 mg/dL (70-99) Calcium Level 8.6 mg/dL (8.5-10.1) Assessment and Plan Assessmemt and Plan Problems Medical Problems: (1) Abdominal pain Status: Acute (2) Bowel obstruction Status: Acute Comment Review of Relevant I have reviewed the following items charles (where applicable) has been applied. Labs Laboratory Tests Test 06/22/18 05:10 White Blood Count 13.4 x10^3/uL (4.0-11.0) Red Blood Count 4.46 x10^6/uL (4.30-5.70) Hemoglobin 13.4 g/dL (13.0-17.5) Hematocrit 41.1 % (39.0-53.0) Mean Corpuscular Volume 92 fL (79-100) Mean Corpuscular Hemoglobin 30 pg (25-35) Mean Corpuscular Hemoglobin Concent 33 g/dL (31-37) Red Cell Distribution Width 14.7 % (11.5-14.5) Platelet Count 231 x10^3/uL (140-400) Neutrophils (%) (Auto) 78 % (31-73) Lymphocytes (%) (Auto) 10 % (24-48) Monocytes (%) (Auto) 10 % (0-9) Eosinophils (%) (Auto) 1 % (0-3) Basophils (%) (Auto) 0 % (0-3) Neutrophils # (Auto) 10.5 x10^3uL (1.8-7.7) Lymphocytes # (Auto) 1.4 x10^3/uL (1.0-4.8) Monocytes # (Auto) 1.3 x10^3/uL (0.0-1.1) Eosinophils # (Auto) 0.2 x10^3/uL (0.0-0.7) Basophils # (Auto) 0.1 x10^3/uL (0.0-0.2) Sodium Level 144 mmol/L (136-145) Potassium Level 3.8 mmol/L (3.5-5.1) Chloride Level 106 mmol/L (98-107) Carbon Dioxide Level 27 mmol/L (21-32) Anion Gap 11 (6-14) Blood Urea Nitrogen 14 mg/dL (8-26) Creatinine 0.7 mg/dL (0.7-1.3) Estimated GFR (Cockcroft-Gault) 112.5 Glucose Level 91 mg/dL (70-99) Calcium Level 8.6 mg/dL (8.5-10.1) Laboratory Tests Test 06/22/18 05:10 White Blood Count 13.4 x10^3/uL (4.0-11.0) Red Blood Count 4.46 x10^6/uL (4.30-5.70) Hemoglobin 13.4 g/dL (13.0-17.5) Hematocrit 41.1 % (39.0-53.0) Mean Corpuscular Volume 92 fL (79-100) Mean Corpuscular Hemoglobin 30 pg (25-35) Mean Corpuscular Hemoglobin Concent 33 g/dL (31-37) Red Cell Distribution Width 14.7 % (11.5-14.5) Platelet Count 231 x10^3/uL (140-400) Neutrophils (%) (Auto) 78 % (31-73) Lymphocytes (%) (Auto) 10 % (24-48) Monocytes (%) (Auto) 10 % (0-9) Eosinophils (%) (Auto) 1 % (0-3) Basophils (%) (Auto) 0 % (0-3) Neutrophils # (Auto) 10.5 x10^3uL (1.8-7.7) Lymphocytes # (Auto) 1.4 x10^3/uL (1.0-4.8) Monocytes # (Auto) 1.3 x10^3/uL (0.0-1.1) Eosinophils # (Auto) 0.2 x10^3/uL (0.0-0.7) Basophils # (Auto) 0.1 x10^3/uL (0.0-0.2) Sodium Level 144 mmol/L (136-145) Potassium Level 3.8 mmol/L (3.5-5.1) Chloride Level 106 mmol/L (98-107) Carbon Dioxide Level 27 mmol/L (21-32) Anion Gap 11 (6-14) Blood Urea Nitrogen 14 mg/dL (8-26) Creatinine 0.7 mg/dL (0.7-1.3) Estimated GFR (Cockcroft-Gault) 112.5 Glucose Level 91 mg/dL (70-99) Calcium Level 8.6 mg/dL (8.5-10.1) Medications Current Medications Hydromorphone HCl (Dilaudid) 0.5 mg PRN Q1HR PRN IV/SQ PAIN GREATER THAN 3/10 Last administered on 06/19/18at 16:42; Start 06/19/18 at 14:15; Stop 06/19/18 at 16:42; Status DC Sodium Chloride 1,000 ml @ 1,000 mls/hr Q1H IV Last administered on 06/19/18at 15:48; Start 06/19/18 at 14:13; Stop 06/19/18 at 15:12; Status DC Ondansetron HCl (Zofran) 4 mg 1X ONCE IV Last administered on 06/19/18at 15:55 ; Start 06/19/18 at 14:15; Stop 06/19/18 at 14:33; Status DC Iohexol (Omnipaque 350 Mg/ml) 90 ml 1X ONCE IV Last administered on 06/19/18at 14:51; Start 06/19/18 at 15:00; Stop 06/19/18 at 15:01; Status DC Ondansetron HCl (Zofran) 4 mg PRN Q8HRS PRN IV NAUSEA/VOMITING; Start 06/19/18 at 15:45; Stop 06/19/18 at 15:49; Status DC Morphine Sulfate (Morphine Sulfate) 2 mg PRN Q2HR PRN IV PAIN Last administered on 06/19/18at 16:22; Start 06/19/18 at 15:45; Stop 06/20/18 at 15:44 ; Status DC Sodium Chloride 1,000 ml @ 125 mls/hr Q8H IV ; Start 06/19/18 at 15:44; Stop at 19:43; Status DC Piperacillin Sod/ Tazobactam Sod (Zosyn Per Pharmacy) 1 each PRN DAILY PRN MC SEE COMMENTS; Start 06/19/18 at 16:00 Ondansetron HCl (Zofran) 4 mg PRN Q6HRS PRN IV NAUSEA/VOMITING; Start 06/19/18 at 16:00; Status Cancel Labetalol HCl (Normodyne Iv Push) 20 mg PRN Q2HR PRN IVP HTN, SEE COMMENTS, 1ST CHOICE Last administered on 06/20/18at 18:17; Start 06/19/18 at 16:00 Famotidine (Pepcid Vial) 20 mg BID IVP Last administered on 06/22/18at 08:45; Start 06/19/18 at 21:00 Piperacillin Sod/ Tazobactam Sod 3.375 gm/Sodium Chloride 50 ml @ 100 mls/hr 1X ONCE IV Last administered on 06/19/18at 16:28; Start 06/19/18 at 16:15; Stop 06/19/18 at 16:44; Status DC Ondansetron HCl (Zofran) 4 mg PRN Q6HRS PRN IV NAUSEA/VOMITING; Start 06/19/18 at 16:30; Stop 06/20/18 at 16:29; Status DC Fentanyl Citrate (Fentanyl 2ml Vial) 25 mcg PRN Q5MIN PRN IV MILD PAIN; Start 06/19/18 at 16:30; Stop 06/19/18 at 22:00; Status DC Fentanyl Citrate (Fentanyl 2ml Vial) 50 mcg PRN Q5MIN PRN IV MODERATE TO SEVERE PAIN Last administered on 06/19/18at 20:07; Start 06/19/18 at 16:30; Stop 06/19/18 at 22:00; Status DC Morphine Sulfate (Morphine Sulfate) 1 mg PRN Q10MIN PRN IV SEVERE PAIN; Start 06/19/18 at 16:30; Stop 06/19/18 at 22:00; Status DC Ringer's Solution 1,000 ml @ 30 mls/hr Q24H IV ; Start 06/19/18 at 16:27; Stop 06/20/18 at 04:26; Status DC Hydromorphone HCl (Dilaudid) 0.5 mg PRN Q10MIN PRN IV SEV PAIN, Second choice; Start 06/19/18 at 16:30; Stop 06/19/18 at 22:00; Status DC Prochlorperazine Edisylate (Compazine) 5 mg PACU PRN PRN IV NAUSEA, MRX1; Start 06/19/18 at 16:30; Stop 06/19/18 at 22:00; Status DC Fentanyl Citrate (Fentanyl 5ml Vial) 250 mcg STK-MED ONCE .ROUTE ; Start at 16:33; Stop 06/19/18 at 16:34; Status DC Rocuronium [place] (Zemuron) 50 mg STK-MED ONCE .ROUTE ; Start 06/19/18 at 16:33 ; Stop 06/19/18 at 16:34; Status DC Propofol 20 ml @ As Directed STK-MED ONCE IV ; Start 06/19/18 at 16:34; Stop 02/25 at 16:35; Status DC Lidocaine HCl (Lidocaine Pf 2% Vial) 5 ml STK-MED ONCE .ROUTE ; Start 06/19/18 at 16:34; Stop 06/19/18 at 16:35; Status DC Ondansetron HCl (Zofran) 4 mg STK-MED ONCE .ROUTE ; Start 06/19/18 at 16:34; Stop 06/19/18 at 16:35; Status DC Dexamethasone Sodium Phosphate (Decadron) 20 mg STK-MED ONCE .ROUTE ; Start 02/25 at 16:34; Stop 06/19/18 at 16:35; Status DC Piperacillin Sod/ Tazobactam Sod 3.375 gm/Sodium Chloride 50 ml @ 100 mls/hr Q6HRS IV Last administered on 06/22/18at 06:01; Start 06/19/18 at 23:00 Morphine Sulfate (Morphine Sulfate) 4 mg STK-MED ONCE .ROUTE ; Start 06/19/18 at 17:10; Stop 06/19/18 at 17:11; Status DC Morphine Sulfate (Morphine Sulfate) 4 mg PRN Q10MIN PRN IV PAIN Last administered on 06/19/18at 17:23; Start 06/19/18 at 17:15; Stop 06/20/18 at 11:58 ; Status DC Succinylcholine Chloride (Anectine) 200 mg STK-MED ONCE .ROUTE ; Start 06/19/18 at 17:35; Stop 06/19/18 at 17:36; Status DC Glycopyrrolate (Robinul) 1 mg STK-MED ONCE .ROUTE ; Start 06/19/18 at 18:36; Stop 06/19/18 at 18:37; Status DC Ephedrine Sulfate (ePHEDrine PF IN SALINE SYRINGE) 50 mg STK-MED ONCE IV ; Start 06/19/18 at 19:05; Stop 06/19/18 at 19:06; Status DC Neostigmine Methylsulfate (Neostigmine Methylsulfate) 5 mg STK-MED ONCE .ROUTE ; Start 06/19/18 at 19:13; Stop 06/19/18 at 19:14; Status DC Enoxaparin Sodium (Lovenox 40mg Syringe) 40 mg Q12HR SQ Last administered on at 08:56; Start 06/20/18 at 09:00; Stop 06/20/18 at 09:30; Status DC Sodium Chloride (Normal Saline Flush) 3 ml QSHIFT PRN IV AFTER MEDS AND BLOOD DRAWS; Start 06/19/18 at 19:45 Potassium Chloride/Sodium Chloride 1,000 ml @ 100 mls/hr Q10H IV Last administered on 06/21/18at 02:09; Start 06/19/18 at 19:42; Stop 06/21/18 at 08:13 ; Status DC Hydromorphone HCl 30 ml @ 0 mls/hr CONT PRN PRN IV PER PROTOCOL Last administered on 06/20/18at 22:19; Start 06/19/18 at 19:45 Ondansetron HCl (Zofran) 4 mg PRN Q6HRS PRN IV NAUESA, 1ST CHOICE; Start at 19:45 Throat Lozenges (Cepacol Sore Throat Lozenge) 1 aldair PRN Q2HRS PRN PO SORE THROAT, 1ST CHOICE Last administered on 06/20/18at 08:54; Start 06/19/18 at 19:45 Throat Lozenges (Chloraseptic) 1 spray PRN Q2HR PRN PO SORE THROAT, 2ND CHOICE ; Start 06/19/18 at 19:45 Hydralazine HCl (Apresoline Inj) 10 mg PRN Q4HRS PRN IVP ELEVATED BP, SEE COMMENTS; Start 06/19/18 at 21:15 Enoxaparin Sodium (Lovenox 40mg Syringe) 40 mg Q24H SQ Last administered on at 08:47; Start 06/21/18 at 09:00 Albuterol Sulfate (Ventolin Neb Soln) 2.5 mg PRN Q4HRS PRN NEB SHORTNESS OF BREATH; Start 06/20/18 at 17:00; Stop 06/20/18 at 17:00; Status DC Albuterol Sulfate (Ventolin Neb Soln) 2.5 mg PRN Q4HRS PRN NEB SHORTNESS OF BREATH Last administered on 06/21/18at 13:33; Start 06/20/18 at 16:57 Sodium Chloride 1,000 ml @ 100 mls/hr Q10H IV Last administered on 06/22/18at 04:15; Start 06/21/18 at 08:15 Nicotine (Nicoderm Cq 21mg) 1 patch PRN DAILY PRN TD SMOKING CESSATION Last administered on 06/22/18at 10:32; Start 06/21/18 at 10:30 Ibuprofen (Motrin) 400 mg PRN Q6HRS PRN PO INFLAMMATION Last administered on at 07:07; Start 06/21/18 at 17:00 Tramadol HCl (Ultram) 50 mg PRN Q6HRS PRN PO PAIN Last administered on at 07:07; Start 06/21/18 at 17:00 Aspirin (Children'S Aspirin) 81 mg DAILYWBKFT PO Last administered on at 10:27; Start 06/22/18 at 09:00 Lactobacillus Rhamnosus (Culturelle) 1 cap BID PO ; Start 06/22/18 at 21:00 Iohexol (Omnipaque 300 Mg/ml) 75 ml 1X ONCE IV ; Start 06/22/18 at 10:45; Stop 06/22/18 at 10:49; Status DC Info (CONTRAST GIVEN -- Rx MONITORING) 1 each PRN DAILY PRN MC SEE COMMENTS; Start 06/22/18 at 11:00; Stop 06/24/18 at 10:59 Active Scripts Active Reported Atorvastatin Calcium 10 Mg Tablet 1 Tab PO DAILY Triamterene-Hctz 37.5-25 Mg Cp (Triamterene/Hydrochlorothiazid) 1 Each Capsule 1 Cap PO DAILY Amlodipine Besylate 10 Mg Tablet 10 Mg PO DAILY Vitals/I & O Vital Sign - Last 24 Hours 06/21/18 06/21/18 06/21/18 06/21/18 13:35 15:00 19:00 20:00 Temp 97.7 97.8 97.7 97.8 Pulse 60 57 Resp 18 18 B/P (MAP) 146/63 (90) 158/58 (91) Pulse Ox 93 92 96 O2 Delivery Nasal Cannula Nasal Cannula Nasal Cannula Nasal Cannula O2 Flow Rate 2.0 2.5 2.5 2.5 06/21/18 06/22/18 06/22/18 06/22/18 23:00 03:00 07:00 07:07 Temp 97.5 97.5 98.0 97.5 97.5 98.0 Pulse 59 54 65 Resp 18 18 18 B/P (MAP) 151/61 (91) 156/62 (93) 148/62 (90) Pulse Ox 98 93 94 93 O2 Delivery Nasal Cannula Nasal Cannula Nasal Cannula Nasal Cannula O2 Flow Rate 2.5 2.5 2.5 2.5 06/22/18 08:07 Resp 18 O2 Delivery Nasal Cannula O2 Flow Rate 2.0 Intake and Output 06/21/18 06/21/18 06/22/18 15:00 23:00 07:00 Intake Total 1020 ml 360 ml Output Total 1575 ml 3500 ml Balance -555 ml -3140 ml RITA DONOHUE MD Jun 22, 2018 11:14
[2018-06-22] MEDS ORDERED: UMEC62.5 IH (11:26)
[2018-06-22] MEDS ORDERED: VENTOLIN HFA18 GM INH (11:26)
[2018-06-22] MEDS ORDERED: FLUT1DIS5 IH ×2 (11:26→15:42)
[2018-06-22] MEDS ORDERED: TRAM50TA PO ×2 (11:26→15:42)
--- NOTE | 2018-06-22 11:36 | NUR ---
SW following for discharge planning. Discussed with RN, pt is from home, and is anxious to leave the hospital and go home. PT/OT from last week recommending SNU, however RN reported pt has been ambulating the hallways and does not want SNU, and likely doesn't need it anymore. Diet advancing and more tests today, per RN. SW will continue to follow for discharge planning needs, awaiting PT/OT notes from today to determine if SNU is still being recommended.
[2018-06-22] MEDS ORDERED: amLODIPine BESYLATE 10 MG TABLET PO SCH (12:00)
[2018-06-22] MEDS ORDERED: NON FORMULARY ITEM (Albuterol Sulfate (Ventolin Hfa Inhaler) 2 PUFF) INH SCH (12:00)
[2018-06-22] MEDS ORDERED: IPRATRPIUM/ALBUTEROL 0.5/2.5MG 3 ML NEBU. NEB SCH (12:00)
[2018-06-22] MEDS ORDERED: TRIAMTERENE/HCTZ 37.5/25MG TABLET. PO SCH (12:00)
[2018-06-22 15:00] VITALS: BP 148/62
--- NOTE | 2018-06-22 15:30 | RAD ---
CTA of the head and neck with contrast, 06/22/2018: HISTORY: Carotid bruit, carotid stenosis Multidetector CT imaging was performed prior to and following an IV bolus injection of iodinated contrast material. Multiplanar reconstructions were produced including MIP images as well as 3-D volume rendered reconstructions of the major arteries. There is moderate calcific plaquing involving the aortic arch and its branches. There is moderate irregular plaquing involving the proximal left subclavian artery. There is mild dilatation of its origin with approximately 50 percent diameter narrowing of its lumen. It is widely patent distally. There is mild calcified plaques throughout the left common carotid artery. There is more extensive calcific plaquing at the left carotid bifurcation. This is causing approximate 60-70 percent diameter narrowing of the left internal carotid artery at its origin. There is moderate calcific plaquing of the distal left internal carotid artery in its cavernous segment without evidence of high-grade stenosis. The left middle cerebral and anterior cerebral arteries and their major branches are unremarkable. There are moderate scattered plaques in the innominate and right subclavian arteries without evidence of high-grade stenosis. There is moderate calcific plaquing at the left carotid bifurcation with approximate 40 percent diameter narrowing of the lumen of the bifurcation, with mild narrowing of the origin of the right internal carotid artery. There is moderate calcific plaquing involving the cavernous segment of the distal right internal carotid artery without evidence of high-grade stenosis. The right anterior cerebral and middle cerebral arteries and their major branches are unremarkable. No aneurysm is evident at the [place] level. There is extensive calcific plaquing and severe luminal narrowing involving the proximal left vertebral artery. There are additional mild to moderate scattered calcific plaques in both vertebral arteries in the neck. Both vessels are patent up through their junction with the basilar artery. The basilar artery shows no abnormality. The posterior cerebral arteries are patent. There is a prominent posterior communicating artery on the right. No intracranial aneurysm or major arterial abnormality is identified. Moderate multilevel degenerative changes are noted in the cervical spine. IMPRESSION: 1. Moderate calcific plaquing of the aortic arch and its branches with moderate irregular plaquing involving the proximal left subclavian artery. 2. Moderate calcific plaquing at both carotid bifurcations with approximately 60-70 percent diameter narrowing of the left internal carotid artery origin and approximately 40 percent diameter narrowing at the right carotid bifurcation. 3. Moderate calcific plaquing involving the cavernous segments of both internal carotid arteries without evidence of high-grade stenosis. 4. Extensive calcific plaquing involving the proximal left vertebral artery with severe stenosis at its origin. 5. No major intracranial arterial stenosis or occlusion is identified. RS Compliance Statement: One or more of the following individualized dose reduction techniques were utilized for this examination: 1. Automated exposure control 2. Adjustment of the mA and/or kV according to patient size 3. Use of iterative reconstruction technique Electronically signed by: Jose De Jesus Fu MD (06/22/2018 3:27 PM) [facility]
[2018-06-22] MEDS ORDERED: ASPI-630 PO (15:42)
--- NOTE | 2018-06-22 15:59 | PDOC3 ---
Discharge Summary Visit Information Date of Admission: Jun 19, 2018 Date of Discharge: Jun 22, 2018 Final Diagnosis Problems Medical Problems: (1) Abdominal pain Status: Acute (2) Bowel obstruction Status: Acute Brief Hospital Course Allergies Allergies Coded Allergies Type Severity Reaction Last Updated Verified lisinopril Allergy Severe Anaphylaxis 06/20/18 Yes Vital Signs Vital Signs Date Time Temp Pulse Resp B/P (MAP) Pulse Ox O2 Delivery O2 Flow Rate FiO2 06/22/18 12:38 72 147/60 06/22/18 11:00 97.4 16 94 Nasal Cannula 2.5 97.4 Lab Results Laboratory Tests Test 06/22/18 05:10 White Blood Count 13.4 x10^3/uL (4.0-11.0) Red Blood Count 4.46 x10^6/uL (4.30-5.70) Hemoglobin 13.4 g/dL (13.0-17.5) Hematocrit 41.1 % (39.0-53.0) Mean Corpuscular Volume 92 fL (79-100) Mean Corpuscular Hemoglobin 30 pg (25-35) Mean Corpuscular Hemoglobin Concent 33 g/dL (31-37) Red Cell Distribution Width 14.7 % (11.5-14.5) Platelet Count 231 x10^3/uL (140-400) Neutrophils (%) (Auto) 78 % (31-73) Lymphocytes (%) (Auto) 10 % (24-48) Monocytes (%) (Auto) 10 % (0-9) Eosinophils (%) (Auto) 1 % (0-3) Basophils (%) (Auto) 0 % (0-3) Neutrophils # (Auto) 10.5 x10^3uL (1.8-7.7) Lymphocytes # (Auto) 1.4 x10^3/uL (1.0-4.8) Monocytes # (Auto) 1.3 x10^3/uL (0.0-1.1) Eosinophils # (Auto) 0.2 x10^3/uL (0.0-0.7) Basophils # (Auto) 0.1 x10^3/uL (0.0-0.2) Sodium Level 144 mmol/L (136-145) Potassium Level 3.8 mmol/L (3.5-5.1) Chloride Level 106 mmol/L (98-107) Carbon Dioxide Level 27 mmol/L (21-32) Anion Gap 11 (6-14) Blood Urea Nitrogen 14 mg/dL (8-26) Creatinine 0.7 mg/dL (0.7-1.3) Estimated GFR (Cockcroft-Gault) 112.5 Glucose Level 91 mg/dL (70-99) Calcium Level 8.6 mg/dL (8.5-10.1) Laboratory Tests Test 06/22/18 05:10 White Blood Count 13.4 x10^3/uL (4.0-11.0) Red Blood Count 4.46 x10^6/uL (4.30-5.70) Hemoglobin 13.4 g/dL (13.0-17.5) Hematocrit 41.1 % (39.0-53.0) Mean Corpuscular Volume 92 fL (79-100) Mean Corpuscular Hemoglobin 30 pg (25-35) Mean Corpuscular Hemoglobin Concent 33 g/dL (31-37) Red Cell Distribution Width 14.7 % (11.5-14.5) Platelet Count 231 x10^3/uL (140-400) Neutrophils (%) (Auto) 78 % (31-73) Lymphocytes (%) (Auto) 10 % (24-48) Monocytes (%) (Auto) 10 % (0-9) Eosinophils (%) (Auto) 1 % (0-3) Basophils (%) (Auto) 0 % (0-3) Neutrophils # (Auto) 10.5 x10^3uL (1.8-7.7) Lymphocytes # (Auto) 1.4 x10^3/uL (1.0-4.8) Monocytes # (Auto) 1.3 x10^3/uL (0.0-1.1) Eosinophils # (Auto) 0.2 x10^3/uL (0.0-0.7) Basophils # (Auto) 0.1 x10^3/uL (0.0-0.2) Sodium Level 144 mmol/L (136-145) Potassium Level 3.8 mmol/L (3.5-5.1) Chloride Level 106 mmol/L (98-107) Carbon Dioxide Level 27 mmol/L (21-32) Anion Gap 11 (6-14) Blood Urea Nitrogen 14 mg/dL (8-26) Creatinine 0.7 mg/dL (0.7-1.3) Estimated GFR (Cockcroft-Gault) 112.5 Glucose Level 91 mg/dL (70-99) Calcium Level 8.6 mg/dL (8.5-10.1) Brief Hospital Course 67 yo vasculopath with severe lower abdominal pain and a CT showing large bilateral inguinal hernias and concern for a closed loop obstruction of the small bowel in the pelvis. patient found to have ischemic bowel and underwent stat small bowel resection, 1 foot on 06/19/18. patient also had Complete occlusion of the right superficial femoral artery proximally. vasc sx consulted and since he is currently asymptomatic fromhis peripheral arterial disease with no claudication, no rest pain and no tissue breakdown. No vascular intervention is needed at this time. had carotid dopplers and CTA of head and neck done while inpatient. will follow up with vas sx as outpatient. patient recommended to be on ASA statin. ASA okay per gen sx. patient able to slowly tolerate diet. was on [employer] pump but was taken off and tolerated ultram. patient cleared for discharge and will follow up with gen sx as outpatient. patient discharged in stable condition. Discharge Information Condition at Discharge: Improved Follow Up: Weeks Disposition/Orders: D/C to Home Scheduled Albuterol Sulfate (Ventolin Hfa Inhaler) 18 Gm Hfa.aer.ad, 2 PUFF INH Q4HRS for FOR ASTHMA, Ref 0 (Reported) Entered as Reported by: PHILIPP GROSS on 06/22/18 1126 Last Action: Converted on 06/22/181127 by PHILIPP GROSS Amlodipine Besylate (Amlodipine Besylate) 10 Mg Tablet, 10 MG PO DAILY for hypertension, (Reported) Entered as Reported by: PATO HERNANDEZ on 06/20/18 0611 Last Taken: UNKNOWN on Unknown Date & Time Last Action: Continued on 06/22 by PHILIPP GROSS Aspirin (Aspirin) 81 Mg Tab.chew, 81 MG PO DAILYWBKFT for vascular dz for 14 Days, #14 Prescribed by: RITA DONOHUE MD on 06/22/18 1542 Atorvastatin Calcium (Atorvastatin Calcium) 10 Mg Tablet, 1 TAB PO DAILY for daily hs, #30 Ref 5 (Reported) Entered as Reported by: DALIA ORTIZ on 06/20/181133 Last Taken: UNKNOWN on Unknown Date & Time Last Action: New Order on 06/20 by DALIA ORTIZ Fluticasone/Salmeterol (Advair 500-50 Diskus) 1 Each Disk.w.dev, 1 PUFF IH BID for asthma for 7 Days, #1 Ref 5 Prescribed by: RITA DONOHUE MD on 06/22/181541 Triamterene/Hydrochlorothiazid (Triamterene-Hctz 37.5-25 Mg Cp) 1 Each Capsule, 1 CAP PO DAILY for hypertension, #30 Ref 5 (Reported) Entered as Reported by: PATO HERNANDEZ on 06/20/18610 Last Taken: UNKNOWN on Unknown Date & Time Last Action: Converted on 06/22 by PIHLIPP GROSS Umeclidinium [place] (Incruse Ellipta) 62.5 Mcg Blst.w.dev, 62.5 MCG IH DAILY for copd, (Reported) Entered as Reported by: PHILIPP GROSS on 06/22/181125 Last Action: Converted on 06/22/181127 by PHILIPP GROSS Scheduled PRN Tramadol Hcl (Tramadol Hcl) 50 Mg Tablet, 50 MG PO DAILY PRN for PAIN for 5 Days , #5 Ref 0 Prescribed by: RITA DONOHUE MD on 06/22/181541 Discontinued Medications Atorvastatin Calcium (Atorvastatin Calcium) 80 Mg Tablet, 1 TAB PO DAILY for cholesterol, #30 Ref 5 (Reported) Entered as Reported by: PATO HERNANDEZ on 06/20/18610 Last Taken: UNKNOWN on Unknown Date & Time Last Action: Discontinued on 1134 by RITA BETANCUR MD Jun 22, 2018 15:59
--- NOTE | 2018-06-22 16:15 | PDOC ---
Provider Note Provider Note Patient seen in his hospital room today He is sitting up in a chair next to the bed, wearing his personal clothing awake and pleasant no complaints He informs me that she is going home today after recent surgery for bowel obstruction Vital signs stable I reviewed his carotid duplex as well as his CTA of the neck -- both should just 70% left ICA stenosis He has a proximal left SFA occlusion but no significant symptoms (history of aortobifemoral bypass). Reviewed all of his imaging findings with him today. He is asymptomatic from a carotid standpointdenies any localizing neurologic symptoms to suggest TIA or stroke He had a long discussion today regarding the nature of carotid stenosis and the indications for carotid endarterectomy/intervention and the risks, benefits, and alternatives I've asked him to continue his statin and begin taking his daily dose of 81 mg aspirin again. He'll follow up with us in the office with baseline ABIs and to discuss the possibility of left carotid endarterectomy for stroke prevention. I spent 25 minutes today in exam, history, review of images, counseling, and coordination of care subsequent day hospital visit MALIKA PARRISH MD Jun 22, 2018 16:15
--- NOTE | 2018-06-22 16:20 | NUR ---
Discharge orders placed. Discharge instructions/medications discussed with pt. IV's removed without complications per KRISTIN Garvey. Pt wheeled to hospital exit with OMARI Danielle without complications.
--- NOTE | 2018-06-22 18:47 | NUR ---
Pt was given all discharge instructions, follow up info, new prescriptions, and teaching. Pt is stable. Alertx4. Iv removed. No tele. Pt will be returning home with self care, and follow up with surgery in 1 week. All belongings collected before pt left and left with pt at discharge. Pt was taken via wheelchair to entrance he had a ride back home. Pt left at 1620, escorted by [facility].
[2018-06-22] MEDS ORDERED: BUDESONIDE 0.5 MG/2 ML NEBU. NEB SCH (20:00)
[2018-06-22] MEDS ORDERED: LACTOBACILLUS RHAMNOSUS GG 1 CAPSULE. PO SCH (21:00)
[2018-06-23] MEDS ORDERED: FAMOTIDINE 20 MG TABLET. PO SCH (09:00)
--- NOTE | 2018-06-23 15:06 | PATHOLOGY ---
[facility] Accession Number: [id number] . 01 Material submitted: . PART A: small bowel - SMALL BOWEL PART B: appendix - APPENDIX . 01 Clinical history: . Small bowel obstruction . 02 Diagnosis: A. Small bowel and attached mesentery, small bowel segmental resection: - Hemorrhagic infarct. - Proximal and distal small bowel margins of resection viable. . B. Appendix, incidental appendectomy: - No significant pathologic abnormalities. (JPM:[facility] 06/23/2018) QTP/06/23/2018 . 02 Electronically signed: . Master Sorensen MD, Pathologist NPI- [id number] . 01 Gross description: . A. The specimen is received in formalin, labeled "Susana Garica, small bowel". Received is an unoriented segment of small bowel measuring 46.7 cm in length by 2.7 cm in diameter. Both margins are stapled closed. The serosal surface is dusky brown-spencer in appearance. The attached mesenteric fat is yellow-mosley to red-brown in appearance and measures up to 5.5 cm in thickness. The specimen is opened along the antimesenteric line to reveal red-brown to brown-black mucosa with moderate architectural folds. The lumen of the small bowel is impacted with blood coagulum. No distinct nodules or lesions are noted grossly. Sectioning through the attached mesenteric fat reveals yellow-mosley to red-brown cut surfaces, and no grossly distinct lymph nodes. The specimen is submitted representatively as follows: . A1-A2 retail account representative section of each margin A3-A4 retail account representative sections of small bowel . B. The specimen is received in formalin, labeled "Susana Garcia, appendix". Received is a vermiform appendix measuring 9.2 cm in length by 0.7 cm in diameter with a moderate amount of attached mesoappendix. The serosal surface is pale mosley and grossly unremarkable. The proximal margin is inked. Sectioning reveals a dilated lumen filled with fecal material. No distinct nodules or lesions are noted grossly. The specimen is submitted representatively in cassettes B1 and B2, with the proximal margin and bisected tip submitted in cassette B1. ([facility]; 06/22/2018) QAC/QAC . 02 Pathologist provided ICD-10: K55.029 . 02 CPT . 808519, 042179 Specimen Comment: A courtesy copy of this report has been sent to Specimen Comment: [phone]. Specimen Comment: Report sent to Performed at: [address], [place] [id number] MD Riley Velasquez MD Phone: [phone] [facility]: [facility] [address] [place], [place] [id number] MD Master Sorensen MD Phone: [phone]
--- NOTE | 2018-06-23 15:27 | EKG ---
[facility] [address] [place] [address] Test Date: 2018-06-19 Test Time: 13:42:55 Pat Name: JACLYN MCKEON Department: Room: [facility] Gender: M [employer]ker: : 1950 Requested By: BERTHA WRIGHT Order Number: [id number] Reading MD: Manjinder Mejia Measurements Intervals [place]ell Rate: 45 P: 65 WI: 222 QRS: 49 QRSD: 90 T: 77 QT: 494 QTc: 433 Interpretive Statements SINUS BRADYCARDIA ATRIAL PREMATURE COMPLEX(ES) PROLONGED WI INTERVAL NON SPECIFIC ST DEPRESSION ABNORMAL ECG No previous ECG available for comparison Electronically Signed On 06-29-2018 12:31:28 CDT by Manjinder Mejia
== END 2018-06-22 16:20 | disposition home or self-care (01) | DRG 330 ==
LOC: ER 13:55 → 1 WEST ICU 15:43 → 4 NORTH 06-20 10:15
PROVIDERS: ADMIT Internal Medicine; ATTEND Internal Medicine
PROC: 0DB80ZZ Excision of Small Intestine, Open Approach (ICD-10-PCS; 2018-06-19)
PROC: 0YQA0ZZ Repair Bilateral Inguinal Region, Open Approach (ICD-10-PCS; 2018-06-19)
PROC: 0DTJ0ZZ Resection of Appendix, Open Approach (ICD-10-PCS; principal; 2018-06-19 17:00)
DX: K55.9 Vascular disorder of intestine, unspecified (principal); I70.92 Chronic total occlusion of artery of the extremities; K40.00 Bilateral inguinal hernia, with obstruction, without gangrene, not specified as recurrent; I10 Essential (primary) hypertension; J43.9 Emphysema, unspecified; D72.829 Elevated white blood cell count, unspecified; K66.0 Peritoneal adhesions (postprocedural) (postinfection); R09.89 Other specified symptoms and signs involving the circulatory and respiratory systems; I83.90 Asymptomatic varicose veins of unspecified lower extremity; F17.210 Nicotine dependence, cigarettes, uncomplicated; G47.62 Sleep related leg cramps; G62.9 Polyneuropathy, unspecified; I70.201 Unspecified atherosclerosis of native arteries of extremities, right leg; I71.9 Aortic aneurysm of unspecified site, without rupture; Z79.899 Other long term (current) drug therapy; Z88.8 Allergy status to other drugs, medicaments and biological substances; Z71.6 Tobacco abuse counseling
CPT/HCPCS: 36415; 70496; 70498; 71275; 74018; 74174; 80047; 80048; 80076; 83605; 83690; 85007; 85025; 85610; 87071; 87075; 87641; 88302; 88307; 93005; 93880; 93923; 94640; 94760; 96361; 96374; A7015; J0171; J0330; J1100; J1170; J1650; J2001; J2270; J2405; J2543; J2704; J2710; J3010; J3490; J7030; J7613; Q9967; 97116; 97535; 99291-25

== ENCOUNTER 2019-03-23 13:12 | Emergency (ER) | payer MEDICARE, MEDICAID ==
[~2019-03-23] VITALS: Ht 195.6 cm; Wt 80.3 kg
[~2019-03-23 13:12] MED LIST: AMLO10TA8 PO; ASPI-630 PO; ATOR10TA60 PO; ATORVASTATIN CA80 MG PO; FLUT1DIS5 IH; TRAM50TA PO; TRIA1CAP3 PO; UMEC62.5 IH; VENTOLIN HFA18 GM INH
[2019-03-23 13:49] VITALS: BP 148/68
--- NOTE | 2019-03-23 14:03 | PHYS DOC ---
Past Medical History Past Medical History: COPD, Hypertension Past Surgical History: No Surgical History Alcohol Use: Rarely Drug Use: None Adult General Chief Complaint Chief Complaint: LOWEREXTREMITY INJURY HPI HPI Patient is a 68 year old male brought in by ambulance with a bleeding varicose vein. My arrival had stopped it lasted about 15 minutes no blood thinners he bumped his mendoza prior to onset Allergies Allergies Allergies Coded Allergies Type Severity Reaction Last Updated Verified lisinopril Allergy Severe Anaphylaxis 06/20/18 Yes Physical Exam Physical Exam Constitutional: Well developed, well nourished, no acute distress, non-toxic appearance. [] HENT: Normocephalic, atraumatic, bilateral external ears normal, oropharynx moist, no oral exudates, nose normal. [] Eyes: PERRLA, EOMI, conjunctiva normal, no discharge. [] NPulmonary: Normal respiratory effort no increased work of breathing no obvious chest wall trauma A Skin: There is a pinpoint scab noted on the anterior mendoza area is not actively bleeding. No hematoma no fluctuance[] Back: No tenderness, no CVA tenderness. [] Extremities: Varicose veins noted on the left lower extremity no cellulitis Neurologic: Alert and oriented X 3, normal motor function, normal sensory function, no focal deficits noted. [] Psychologic: Affect normal, judgement normal, mood normal. [] Current Patient Data Vital Signs Vital Signs Date Time Temp Pulse Resp B/P (MAP) Pulse Ox O2 Delivery O2 Flow Rate FiO2 03/23/19 13:15 98.1 54 18 148/65 (92) 95 Room Air 98.1 EKG EKG [] Radiology/Procedures Radiology/Procedures [] Course & Med Decision Making Course & Med Decision Making Pertinent Labs and Imaging studies reviewed. (See chart for details) []Bleeding varicose vein stop spontaneously wrapped in er reassurance provided wound care instructions provided Dragon Disclaimer Dragon Disclaimer This electronic medical record was generated, in whole or in part, using a voice recognition dictation system. Departure Departure Impression: Primary Impression: Varicose vein of leg Disposition: HOME, SELF-CARE Condition: STABLE Patient Instructions: Varicose Veins TANNER LINARES MD Mar 23, 2019 14:03
== END 2019-03-23 14:04 | disposition home or self-care (01) ==
LOC: ER 13:12
DX: I83.892 Varicose veins of left lower extremity with other complications (principal); J44.9 Chronic obstructive pulmonary disease, unspecified; I10 Essential (primary) hypertension
CPT/HCPCS: 99282